=== PATIENT | female | born 1995 | race Caucasian/White ===

== ENCOUNTER 2020-03-26 06:19 | Emergency (ER) | payer BC, SELFPAY ==
[2020-03-26 06:23] VITALS: BP 147/86; PULSE 94; RESP 14; TEMP 36.5; O2SAT 99
[2020-03-26 06:34] VITALS: BP 147/86; PULSE 94; RESP 16; TEMP 36.6; O2SAT 100; BMI 34.9
--- NOTE | 2020-03-26 07:16 | ED.HA ---
HPI - Headache General Chief Complaint: Headache Stated Complaint: migraine Time Seen by Provider: 03/26/20 07:16 Source: patient Mode of arrival: ambulatory Limitations: no limitations History of Present Illness MD elicited complaint: headache Onset (ago): day(s) (2) Onset description: suddenly Location: right and temporal Quality & Timing: constant Exacerbating factors: light and noise Associated symptoms: other (Tingling on the right side of the face) Treatments prior to arrival: ibuprofen Related Data Allergies Allergy/AdvReac Type Severity Reaction Status Date / Time nut - unspecified [NUTS] Allergy Unknown SWELLING Verified 03/26/20 08:08 THROAT, Face, HIVES oxcarbazepine AdvReac Intermediate RASH Verified 03/26/20 08:08 [From TRILEPTAL] NUTS Allergy Unknown anaphylaxis Uncoded 02/21/17 00:00 peanuts Allergy Unknown anaphylaxis Uncoded 02/09/20 00:00 Review of Systems Constitutional: Constitutional: Reports body ache(s), Reports chills, Reports fever(s) and Reports frequent falls Eyes: Eyes: Reports no additional eye complaints ENT: Reports system reviewed and no additional complaints, except as documented Cardiovascular: Cardiovascular: Reports no additional cardiovascular complaints Respiratory: Respiratory: Reports no additional respiratory complaints Gastrointestinal: Gastrointestinal: Denies abdominal pain, Denies diarrhea, Reports nausea and Denies vomiting Neurologic: Reports frequent falls Psychiatric: Psychiatric: Reports no additional psychiatric complaints, Denies abnormal sleep pattern and Denies anxiety PMFSH Past Medical History Medical History Chronic headaches Migraines Social History Social History Alcohol intake: never Smoking Status: Never smoker Use of substances other than those prescribed or required for medical reasons: No Advance Directives: No Advance Directives Information Provided: No Physical Exam Vital Signs and I&O and Narrative: Vital Signs and I&O: Vital Signs Temp 97.9 F 03/26/20 07:33 Pulse 77 03/26/20 07:33 Resp 18 03/26/20 07:33 BP 131/84 03/26/20 07:33 Pulse Ox 98 03/26/20 07:33 Intake & Output 03/25/20 03/26/20 03/26/20 18:59 06:59 18:59 Weight 89.358 kg Body Mass Index 34.9 Const: General: cooperative, healthy appearing, comfortable and other (photophobia) Nutritional Appearance: average body habitus Orientation/consciousness: oriented to person, oriented to place and oriented to time Limitations: no limitations HENMT: Other: No temporal artery tenderness or facial asymmetry Head: Yes normal to inspection Ears: hearing grossly normal bilaterally Face and sinus: Yes sinuses nontender Eyes: General: appearance normal, both eyes and all related structures Neck: Neck: Yes normal visual inspection, Yes full ROM, Yes no lymphadenopathy and Yes no meningeal signs Resp: Effort & Inspection: normal respiratory effort Auscultation: clear to auscultation bilaterally Cardio: Rate: regular rate Rhythm: regular rhythm Heart sounds: S1 normal heart sound present and S2 normal heart sound present GI: Inspection: Yes normal to inspection Palpation (GI): Soft to palpation and nontender Neuro: General: oriented to person, oriented to place, oriented to time and no meningeal signs Course Course Course Narrative: Patient headache is getting better after Imitrex still present will give her Fioricet plan to discharge her soon
[2020-03-26 07:33] VITALS: BP 131/84; PULSE 77; RESP 18; TEMP 36.6; O2SAT 98
[2020-03-26 08:00] VITALS: BP 134/89; PULSE 18; RESP 20; TEMP 36.6; O2SAT 98
--- NOTE | 2020-03-26 08:06 | PC.NURSE ---
MEDS GIVEN FOR MURPHY, PT RESTING IN ROOM. WILL REASSESS
== END 2020-03-26 09:54 | disposition home or self-care (01) ==
PROVIDERS: Emergency Provider Internal Medicine; PCP Internal Medicine
DX: G43.909 Migraine, unspecified, not intractable, without status migrainosus (principal)
CPT/HCPCS: 96372; 99284; J3030

== ENCOUNTER → 2020-04-12 12:18 | Outpatient (BNVA) | payer BC, SELFPAY | PROVIDERS: PCP Internal Medicine; Visit Provider Obstetrics & Gynecology | DX: Z76.89 Persons encountering health services in other specified circumstances (principal) ==

== ENCOUNTER 2020-05-20 16:14 | Outpatient (REF) | payer BC, SELFPAY ==
--- NOTE | 2020-05-20 16:17 | CT_ITS ---
EXAMINATION: CT ABDOMEN AND PELVIS WITHOUT CONTRAST CLINICAL INFORMATION: Dysuria. COMPARISON: Ultrasound pelvis 02/11/[address] abdomen and pelvis without contrast 09/26/2018. TECHNIQUE: Multidetector volumetric imaging was performed from the superior aspect of the liver through the pubic symphysis. Sagittal and coronal reformatted images were obtained on the technologist's workstation. This CT examination was performed using dose optimization techniques as appropriate, variously including the following: Automated exposure control. Adjustment of mA and/or kV according to patient size (this includes techniques or standardized protocols for targeted exams where dose is matched to indication/reason for exam; i.e. extremities or head). Use of iterative reconstruction technique. DLP: 536 mGy-cm FINDINGS: LUNG BASES: The visualized lung bases are unremarkable. LIVER, GALLBLADDER, AND BILIARY TREE: The liver is normal in size, shape, and attenuation. No focal hepatic lesion or biliary ductal dilatation is present. The gallbladder is unremarkable with no evidence of radiopaque gallstones, gallbladder wall thickening, or obvious pericholecystic inflammatory changes. PANCREAS: Unremarkable. SPLEEN: Unremarkable. ADRENAL GLANDS: Unremarkable. KIDNEYS AND URETERS: The kidneys are normal in size, shape, and attenuation. No hydronephrosis, hydroureter, or calculi seen. No perinephric stranding. BLADDER: Unremarkable. GASTROINTESTINAL TRACT: There is scattered stool and gas seen throughout the colon. The small bowel loops are normal caliber. Appendix is not visualized with certainty. The stomach is partially distended with recently ingested food. No inflammatory process seen. ABDOMINAL WALL: No significant hernia is appreciated. LYMPH NODES: Normal. VASCULAR: Unremarkable. PELVIC VISCERA: The uterus is retroverted with an IUD well located in endometrial canal. No adnexal mass or free fluid seen. Small phlebolith seen in the right pelvis. OSSEOUS STRUCTURES: No lytic or sclerotic process seen. CT/CT abdomen pelvis wo con IMPRESSION: No radiopaque urolith or hydroureteronephrosis. Retroverted uterus with an IUD in good position.
== END 2020-05-20 16:15 | disposition home or self-care (01) ==
LOC: HO.CT 16:14
PROVIDERS: PCP Internal Medicine; Visit Provider Nurse Practitioner Family
DX: R30.0 Dysuria (principal)
CPT/HCPCS: 74176

== ENCOUNTER 2020-05-28 11:12 | Outpatient (REF) | payer BC, SELFPAY | END 2020-05-28 11:13 | disposition home or self-care (01) | LOC: HO.LAB 11:12 | PROVIDERS: Visit Provider Hospitalist | DX: Z20.828 Contact with and (suspected) exposure to other viral communicable diseases (principal) | CPT/HCPCS: U0003 ==

== ENCOUNTER 2021-03-01 17:19 | Outpatient (REF) | payer BC, SELFPAY | END 2021-03-01 17:20 | disposition home or self-care (01) | LOC: HO.LNP 17:19 | PROVIDERS: Visit Provider Internal Medicine | DX: Z20.822 Contact with and (suspected) exposure to COVID-19 (principal); J06.9 Acute upper respiratory infection, unspecified | CPT/HCPCS: U0005 ==

== ENCOUNTER 2021-03-03 14:13 | Outpatient (REF) | payer BC, SELFPAY | END 2021-03-03 14:14 | disposition home or self-care (01) | LOC: HO.LNP 14:13 | PROVIDERS: Visit Provider Internal Medicine | DX: Z20.822 Contact with and (suspected) exposure to COVID-19 (principal); J06.9 Acute upper respiratory infection, unspecified | CPT/HCPCS: U0003; U0005 ==

== ENCOUNTER 2021-06-23 20:58 | Emergency (ER) | payer BC, SELFPAY ==
[2021-06-23 22:00] VITALS: BP 149/97; PULSE 89; RESP 16; TEMP 37.1; O2SAT 100; BMI 31.8
[2021-06-24] MEDS: diphenhydrAMINE HCL 25 MG TABLET 50 MG PO (01:33)
--- NOTE | 2021-06-24 08:46 | ED.ALLEREA ---
HPI - Allergic Reaction General Chief complaint: Allergic Reaction Stated complaint: booster reaction - rash + tingle on tongue Time Seen by Provider: 06/24/21 08:04 Source: patient Mode of arrival: ambulatory Limitations: no limitations History of Present Illness HPI narrative: Patient is a 26 year old female with a medical history significant for seizure disorder, complex ovarian cyst. She presents to the emergency department with concerns of having allergic reaction to her Moderna COVID-19 booster vaccination that she received 3 days ago. Reports having received her first 2 Moderna vaccinations in June 2020 without any reaction. Yesterday she developed pain to her left shoulder, axilla, and upper back with spots of redness, and swelling. In addition, she reports tingling to her bilateral cheeks, tongue, and her upper palate. Denies associated shortness of breath, difficulty breathing, wheezing, chest pain, nausea, or vomiting. She took Benadryl yesterday evening and early this morning, with minimal relief of itching. Denies any past history of vaccine reactions. MD complaint: allergic reaction Onset (ago): day(s) (1) Symptoms: rash and itching Treatment prior to arrival: benadryl Previous Allergic Reaction History: anaphylaxis ([place]) and other (Trileptal) Related Data Previous Rx's Medication Instructions Recorded [id number] 1 cap PO Q6H PRN #20 cap 03/26/20 50 mg-300 mg-40 mg capsule (Fioricet) sumatriptan succinate 50 mg tablet 50 mg PO Q2H PRN #10 tab 03/26/20 (Imitrex) fluconazole 150 mg tablet 150 mg PO DAILY 3 Days #3 tab 05/28/20 prednisone 20 mg tablet 20 mg PO .COMPLEX #18 tab 05/28/20 diphenhydramine HCl 25 mg capsule 50 mg PO Q6H PRN #14 cap 06/24/21 (Benadryl) famotidine 20 mg tablet (Pepcid) 20 mg PO BID #14 tab 06/24/21 Allergies Allergy/AdvReac Type Severity Reaction Status Date / Time nut - unspecified [NUTS] Allergy Unknown SWELLING Verified 03/01/21 12:57 THROAT, Face, HIVES oxcarbazepine AdvReac Intermediate RASH Verified 03/01/21 12:57 [From TRILEPTAL] Review of Systems Review of Systems: Constitutional : No Fever, No Chills ENT/Mouth : No oral swelling. No Hoarseness, No Swallowing Difficulty Eyes: No Eye Pain, No Swelling, No Redness Cardiovascular : No Chest Pain, No SOB Respiratory : No Cough, No Sputum, No Wheezing, No Smoke Exposure, No Dyspnea Gastrointestinal : No Nausea, No Vomiting, No Diarrhea, No abdominal Pain Genitourinary : No Dysuria, No Urinary Frequency, No Hematuria Musculoskeletal : No joint pain, No Myalgias, No Joint Swelling Skin : No Skin Lesions, positive rash left arm Neuro : No Weakness, No Numbness, No Headache Psych : No Anxiety/Panic, No Depression Heme/Lymph: No Bruising, No Lymphadenopathy Endocrine : No Polyuria, No Polydipsia Yes all other systems are reviewed and are negative [facility] Past Medical History Attestation statement: The following information was validated with the patient. Source: old records reviewed Medical History Chronic headaches Migraines Social History Social History Alcohol intake: never Advance Directives: No Advance Directives Information Provided: Yes Sexual orientation: Straight/Heterosexual Gender identity: Female Physical Exam Vital Signs: Vital Signs: Last Vital Signs Temp 98.8 F 06/23/21 22:00 Pulse 89 06/23/21 22:00 Resp 16 06/23/21 22:00 BP 149/97 H 06/23/21 22:00 Pulse Ox 100 06/23/21 22:00 BMI result Body Mass Index 31.8 Vital signs have been reviewed as normal and appeared to be correct. Blood pressure normal upon repeat 125/81. Heart rate normal.? Respiration rate normal. Temperature normal.? Oxygen saturation normal. Appearance: Alert.? Oriented X3.? No acute distress.?? Eyes: Pupils equal, round and reactive to light.?? ENT: Pharynx normal.??No swelling, no erythema. Neck: Normal inspection.? Neck supple.?? CVS: Normal heart rate and rhythm.? Pulses normal.?? Respiratory: No respiratory distress.? Breath sounds normal.?? Abdomen: Soft and nontender.?? Skin: + localized swelling to left upper arm with patches of erythema. Skin warm and dry.? Normal skin color.? Normal skin turgor.?? Extremities: No lower extremity edema.? Neuro: Oriented X 3.? No motor deficit.? No sensory deficit. Course Course Course Narrative: 26-year-old female presents to the emergency department with concerns about allergic reaction to Moderna COVID-19 booster vaccination received 3 days ago. Currently on exam no concerns for angioedema, she is able to maintain her airway and is speaking full appropriate sentences. Advised discharge home with use of antihistamines for treatment of reaction, Tylenol or ibuprofen as needed for pain, in addition to topical cold therapy. Reviewed indications of return to the emergency department including, but not limited to, shortness of breath, wheezing, difficulty breathing, chest pain, nausea with persistent vomiting. She should follow-up with her primary care provider in 1-2 days. She was provided with a return to work note. MDM - Allergic Reaction Medical Records Attestation: I reviewed the patient's medical records. Discharge Plan Discharge Clinical Impression: Allergic reaction Patient Disposition: Home, Self-Care Instructions: General Allergic Reaction (ED) Additional Instructions: You were evaluated in the emergency department for concerns about an allergic reaction to your Moderna booster vaccination. You can apply cold packs to a left common his armpit. You can continue using Benadryl to alleviate your symptoms, in addition you can use Pepcid as prescribed. You may also use Tylenol or ibuprofen as needed for pain. You should follow-up with your primary care provider in 1 to 2 days. Please return to the emergency department with new or worsening symptoms. Prescriptions: New diphenhydramine HCl [Benadryl] 25 mg capsule 50 mg PO Q6H PRN (Reason: itching) Qty: 14 RF: 0 famotidine [Pepcid] 20 mg tablet 20 mg PO BID Qty: 14 RF: 0 No Action sumatriptan succinate [Imitrex] 50 mg tablet 50 mg PO Q2H PRN (Reason: migraine headache) Qty: 10 RF: 0 [id number]-[id number]-ovke [Fioricet] 50-300-40 mg capsule 1 cap PO Q6H PRN (Reason: pain) Qty: 20 RF: 0 prednisone 20 mg tablet 20 mg PO .COMPLEX Qty: 18 RF: 0 fluconazole 150 mg tablet 150 mg PO DAILY 3 Days Qty: 3 RF: 0 Stand Alone Forms: Work/School Release
[2021-06-24 09:04] VITALS: BP 125/81; PULSE 78; RESP 16; TEMP 36.7; O2SAT 100
== END 2021-06-24 09:47 | disposition home or self-care (01) ==
PROVIDERS: Emergency Provider Emergency Medicine; PCP Internal Medicine
DX: L50.0 Allergic urticaria (principal); Z79.899 Other long term (current) drug therapy
CPT/HCPCS: 99283; Q0163

== ENCOUNTER 2022-10-10 09:40 | Outpatient (REF) | payer BC, SELFPAY | END 2022-10-10 09:41 | disposition home or self-care (01) | LOC: HO.LNP 09:40 | PROVIDERS: PCP Internal Medicine; Visit Provider Obstetrics & Gynecology | DX: Z01.419 Encounter for gynecological examination (general) (routine) without abnormal findings (principal) | CPT/HCPCS: 88142 ==

== ENCOUNTER 2023-07-06 11:14 | Outpatient (AMB) | payer BC, SELFPAY ==
--- NOTE | 2023-07-06 13:08 | AM.OFFWIN_ITS ---
Intake Vital Signs 07/06/23 13:08 07/06/23 13:09 Height 5 ft 4 in 5 ft 4 in Weight 172 lb BMI 29.5 BP 118/80 Blood Pressure Location Lt brachial Position Sitting Pulse 73 Pulse Source Pulse Oximeter Temp 97.9 F Temp Source Temporal Artery Scan Pulse Oximetry (%) 98 Oxygen Delivery Method Room Air Intake Visit Reasons: EP Fever, sore throat, cough [phone] Intake Note: pt is here today for fever sore throat cough started Patient Tobacco Use Status: Never used Tobacco Allergies nut - unspecified [NUTS] Allergy (Unknown, Verified 07/06/23 13:10) SWELLING THROAT, Face, HIVES oxcarbazepine [From TRILEPTAL] Adverse Reaction (Intermediate, Verified 07/06/23 13:10) RASH Medication List - Last Reconciled 07/06/23 by Jessica Bella NP albuterol sulfate 90 mcg/actuation 1 inh inhalation QID PRN diphenhydramine HCl (Benadryl) 50 mg (2 x 25 mg) PO Q6H PRN famotidine (Pepcid) 20 mg PO BID gabapentin 300 mg PO TID levonorgestrel (Mirena) intrauterine Do you need a note to return to daycare/school/sports/work: Yes HPI HPI Comments History of Present Illness Details 28 y/o female presents to walk in clinic with c/o URI symptoms. Reports fever of 101 F this morning. She has not taken any OTC medications. [facility] Medical History Chronic headaches Migraines Family History Maternal Grandmother Breast cancer Social History Alcohol intake: never Patient Tobacco Use Status: Never used Tobacco Sexual orientation: Straight/Heterosexual Gender identity: Female Female Reproductive History Menstrual Age of Menarche: 12 Review of Systems Const All systems reviewed & are unremarkable except as noted in HPI and below Physical Exam Vital Signs: Last Vital Signs Temp 97.9 F 07/06/23 13:09 Pulse 73 07/06/23 13:09 BP 118/80 07/06/23 13:09 Pulse Ox 98 07/06/23 13:09 Oxygen Delivery Method Room Air 07/06/23 13:09 BMI result Body Mass Index 29.5 Const General: comfortable and no acute distress HEENT Head: Yes normocephalic Ears: external ears normal and TM's normal bilaterally General nose exam: Normal nasal mucous membranes and turbinates present and N dinora discharge present Face and sinus: Yes sinus tenderness Mouth: Normal oral and palatal mucosa present Throat: Yes posterior oropharynx normal Resp Effort & Inspection: normal respiratory effort, no audible wheezes, Actively coughing and no grunting Auscultation: clear to auscultation bilaterally Cardio Rate: regular rate Rhythm: regular rhythm Results AMB Rapid Strep AMB Rapid Strep Negative Last Edit by Vikram Bowens CMA on 07/06/23 13 :37 Results Reviewed Results Reviewed: Laboratory Last Values Strep Scn Rapid Clinic Negative 07/06/23 13:36 Assessment & Plan Assessment & Plan (1) Acute pharyngitis: Code(s): J02.9 - Acute pharyngitis, unspecified Qualifiers: Pharyngitis/tonsillitis etiology: unspecified etiology Qualified Code(s): J02.9 - Acute pharyngitis, unspecified Plan: - Rest, warm fluids - Home remedies - Acetaminophen for pain relief. (2) Acute rhinosinusitis: Code(s): J01.90 - Acute sinusitis, unspecified Plan: - Rest, warm fluids - Home remedies - Acetaminophen for pain relief. Orders: Orders SARS-CoV2/FLU/RSV Today J01.90 - Acute sinusitis, unspecified, J02.9 - Acute pharyngitis, unspecified AMB Rapid Strep Screen Today Z13.9 - Encounter for screening, unspecified Medications: New amoxicillin 500 mg PO BID 10 days 20 tabs 0RF acetaminophen 500 mg PO Q6H PRN 30 caps 0RF fever Coding Level of Care Code Est Pt Level 3 (72759) Diagnoses Acute pharyngitis, unspecified etiology J02.9 Pharyngitis/tonsillitis etiology: unspecified etiology Acute rhinosinusitis J01.90 Time Spent (min) 15
[2023-07-06 13:09] VITALS: BP 118/80; PULSE 73; TEMP 36.6; O2SAT 98; BMI 29.5
== END 2023-07-06 13:40 | disposition home or self-care (01) ==
PROVIDERS: PCP Internal Medicine; Visit Provider Nurse Practitioner Family
DX: J02.9 Acute pharyngitis, unspecified (principal); J01.90 Acute sinusitis, unspecified
CPT/HCPCS: 87880; 99213

== ENCOUNTER 2023-07-06 17:17 | Outpatient (REF) | payer BC, SELFPAY ==
[2023-07-06 18:05] LABS: Influenza A PCR NEGATIVE (Negative); Influenza B PCR NEGATIVE (Negative); Resp Syncy Virus RNA Qual PCR NEGATIVE (Negative); SARS COV2 PCR INHOUSE NEGATIVE (Negative)
== END 2023-07-06 17:18 | disposition home or self-care (01) ==
LOC: HO.LNP 17:17
PROVIDERS: Visit Provider Nurse Practitioner Family
DX: Z11.52 Encounter for screening for COVID-19 (principal); Z20.822 Contact with and (suspected) exposure to COVID-19; J02.9 Acute pharyngitis, unspecified; J01.90 Acute sinusitis, unspecified
CPT/HCPCS: 0241U

== ENCOUNTER 2024-03-05 14:22 | Outpatient (REF) | payer OTHER, SELFPAY ==
[2024-03-05 17:06] LABS: Bacterial Vaginosis PCR POSITIVE (Negative); Candida Group PCR NOT DETECTED (Not Detect); Candida glab krusei PCR NOT DETECTED (Not Detect); Trichomonas vaginalis PCR NOT DETECTED (Not Detect)
[2024-03-05 17:44] LABS: CT PCR NOT DETECTED (Not Detect.); NG PCR NOT DETECTED (Not Detect.)
== END 2024-03-05 14:23 | disposition home or self-care (01) ==
LOC: HO.LNP 14:22
PROVIDERS: PCP Internal Medicine; Visit Provider Obstetrics & Gynecology
DX: N94.10 Unspecified dyspareunia (principal); Z30.433 Encounter for removal and reinsertion of intrauterine contraceptive device; Z32.02 Encounter for pregnancy test, result negative
CPT/HCPCS: 0352U; 58300; 58301; 81025; 87491; 87591; J7298

== ENCOUNTER 2024-03-05 14:22 | Outpatient (AMB) | payer OTHER, SELFPAY ==
[2024-03-05 14:37] VITALS: BMI 29.5
--- NOTE | 2024-03-05 14:37 | MHC.OFFVIS ---
Vital Signs 03/05/24 14:37 Height 5 ft 4 in Weight 171 lb 15.369 oz BMI 29.5 Intake Visit Reasons: painful intercourse/IUD check Music Library Assistant Required: No Information Interpreted: non-clinical & clinical Real Estate Utilization Officer: Real Estate Utilization Officer Present (Jocelyn Gan BEN) Accompanied by: Self / Same As Patient Allergies nut - unspecified [NUTS] Allergy (Unknown, Verified 03/05/24 14:38) SWELLING THROAT, Face, HIVES oxcarbazepine [From TRILEPTAL] Adverse Reaction (Intermediate, Verified 03/05/24 14:38) RASH Is last menstrual period known: No (mirena) HPI Comments Details: Presenting complaining of painful intercourse over the last 2 months . The patient had Mirena IUD inserted 8 and half years ago and would like it replaced. No urine or GI symptoms, no vaginal bleeding or discharge PFSH Medical History Chronic headaches Migraines Family History Maternal Grandmother Breast cancer Social History Alcohol intake: never Patient Tobacco Use Status: Never used Tobacco Sexual orientation: Straight/Heterosexual Gender identity: Female Female Reproductive History Menstrual Age of Menarche: 12 Review of Systems Const All systems reviewed & are unremarkable except as noted in HPI and below Physical Exam Vital Signs: BMI result Body Mass Index 29.5 General: Yes no CVA tenderness External Female Exam: normal external appearance and normal appearance of the urethra Speculum Exam - Vagina: normal appearance of the vagina, normal palpation, no lesions and no masses Speculum Exam - Cervix: normal appearance of the cervix, normal palpation, no lesions, no masses, nontender and Other cervical findings present (IUD thread in place) Bimanual exam- vagina & uterus: normal bimanual exam, normal palpation, uterine size normal, normal palpation, uterine shape normal, No Cervical tenderness present and non-tender Bimanual Exam- Adnexa, other: normal adnexae Back/Spine/Pelvis Back: no CVA tenderness Office Procedures IUD Insert/Removal Details Details: The patient is presenting for IUD removal and IUD reinsertion. Her last menstrual period was within the last 5 days, Urine test was done in the office and was negative; All the contraindications were excluded. The following possible complications were discussed with the patient: Intrauterine , Ectopic , Sepsis, Pelvic Infection, Irregular Bleeding and Amenorrhea, Perforation, Expulsion, Ovarian Cysts, Breast Cancer. The following adverse effects were discussed with the patient: alteration of menstrual bleeding pattern, including: unscheduled uterine bleeding decreased uterine bleeding increased scheduled uterine bleeding female genital tract bleeding ,amenorrhea , genital discharge , vulvovaginitis , breast pain , benign ovarian cyst and associated complications , dysmenorrhea , Gastrointestinal disorders abdominal/pelvic pain, headache/migraine , back pain , acne , depression Alternative options were discussed with the patient including but not limited: control pills, patch, NuvaRing, Depo-medroxyprogesterone acetate, Nexplanon, copper IUD, sterilization, vasectomy, others The procedure was explained in detail to patient , at the end patient signed the informed consent obtained. Alternative options were discussed with the patient The patient signed the consent and agreed with the plan; all questions answered. Urine test was done in the office and was negative Last unprotected intercourse was 6 weeks ago Preop dx: Requesting IUD removal and Reinsertion Op: IUD removal and Mirena insertion Post op dx: same EBL= 10 cc Procedure: The patient was put in the dorsal lithotomy position a speculum was inserted in the vagina the IUD thread identified. Using a Tatiana clamp the thread was grasped and the IUD pulled out with no complications. A no touch technique was used throughout the procedure. A speculum was placed into vagina and cervix was cleaned with betadine). A tenaculum was placed. A plastic sound was advanced through the external and internal os until it reached the fundus of the uterus, the depth was 8 cm. The sound was then withdrawn. The IUD was loaded in a sterile manner and advanced into position. The string was visualized and cut to 3 cm. Tenaculum site hemostatic. All instruments removed from vagina. Patient tolerated the procedure well. NO complications were noted. Patient was instructed to call for fever over 100.4, significant pain unrelieved by Motrin, IUD expulsion, heavy bleeding, or abnormal discharge. In addition, the following clinical considerations were discussed with the patient to call for removal: A stroke or heart attack ,Very severe or migraine headaches ,Unexplained fever ,Yellowing of the skin or whites of the eyes, as these may be signs of serious liver problems , or suspected , Pelvic pain or pain during sex ,HIV positive seroconversion in herself or her partner , Possible exposure to sexually transmitted infections Unusual vaginal discharge or genital sores , severe vaginal bleeding or bleeding that lasts a long time, or if she misses a menstrual period, Inability to feel Mirena's threads Counseled the patient that the IUD does not protect against STI's, recommended use of condoms for the first 7 days post insertion and explained to the patient that condoms are recommended for patients at risk for sexually transmitted infections. Follow up appointment made for 4 weeks following insertion. Date of removal in no more than five years for DUB treatment and 8 years for contraception from today?s date was d/w patient. This note was generated with a voice recognition program. Some errors may have been overlooked during the review of this note. Sometimes these errors may affect the content or meaning of a given sentence. 37714-PCM Insertion 20854-WBX Removal Procedure code (CPT) selection complete Office Meds Mirena 21 mcg/24 hr (up to 8 years) 52 mg intrauterine device Performing Provider: Donato Dunn MD Performing Location[place] [facility] [place] [facility] Administered by: Donato Dunn MD on 03/05/24 14:55 Dose Route Admin Location Dispensed Lot Number Expiration Date [facility] [employer] device intrauterine [facility] [place] [id number] 04/17/26 [id number] [employer] Results AMB Test Urine AMB Test Urine Negative Last Edit by Jocelyn Gan CMA on 03/05/24 14:39 Results Reviewed Results Reviewed: Laboratory Last Values Tst Clinic Negative 03/05/24 14:39 Assessment & Plan Assessment & Plan (1) Dyspareunia, female: Code(s): N94.10 - Unspecified dyspareunia Category: Medical Plan: Urine dip and test done in the office. GC/CT with BV panel collected. Pelvic ultrasound ordered. Instructions given the patient to schedule a 2 week follow-up appointment (2) Encounter for IUD removal and reinsertion: Code(s): Z30.433 - Encounter for removal and reinsertion of intrauterine contraceptive device Category: Medical Plan: Discussed with the patient that Mirena IUD is . Discussed with the patient the different options of control including control pills/Nuvaring, DMPA, different types of IUD ?s ( cu vs progesterone) , sterilization. All the pros, cons, risks and benefits of each were discussed with the patient. The patient decided to go ahead with Mirena IUD, so a more detailed discussion was carried on including mechanism of action, risks (infection, uterine perforation, failure with ectopic , septic AB, ovarian cyst and pelvic pain, increased breast cancer risk and others) benefits (efficient contraceptive method, others), GC/CG were taken and the patient asked to have Mirena IUD removal and insertion today. Patient is amenorrheic since IUD insertion 8 and half years ago and last unprotected intercourse was 6 weeks ago. Urine test done today was negative. Mirena IUD removal and insertion done, see procedure note Orders: Orders CT NG by PCR 03/05/24 Z30.433 - Encounter for removal and reinsertion of intrauterine contraceptive device Bacterial Vaginosis Panel 03/05/24 Z30.433 - Encounter for removal and reinsertion of intrauterine contraceptive device AMB HCG Urine Test 03/05/24 Z32.02 - Encounter for test, result negative US pelvic and transvaginal 03/05/24 N94.10 - Unspecified dyspareunia AMB IUD Insertion/Removal - Practice Supplied 03/05/24 Z30.433 - Encounter for removal and reinsertion of intrauterine contraceptive device Coding Level of Care Code Est Pt Level 3 (20954) Diagnoses Dyspareunia, female N94.10 Encounter for IUD removal and reinsertion Z30.433 CPT Codes Details - CPT: 75965-WEU Insertion ([id number]) Details - CPT: 02615-WQX Removal ([id number])
== END 2024-03-05 15:18 | disposition home or self-care (01) ==
PROVIDERS: PCP Internal Medicine; Visit Provider Obstetrics & Gynecology
DX: Z32.02 Encounter for pregnancy test, result negative (principal); Z30.433 Encounter for removal and reinsertion of intrauterine contraceptive device
CPT/HCPCS: 58300; 58301; 99213

== ENCOUNTER 2024-03-05 15:15 | Outpatient (REF) | payer OTHER, SELFPAY ==
--- NOTE | ~2024-03-05 | US_ITS ---
EXAMINATION: US PELVIS CLINICAL INFORMATION: Dyspareunia. COMPARISON: None available. TECHNIQUE: Ultrasound of the pelvis is performed using both transabdominal and transvaginal transducers along with Doppler. Transvaginal imaging is performed due to inadequate visualization transabdominally. FINDINGS: UTERUS: The uterus is anteverted and measures 7.1 x 3.1 x 3.9 cm. The double wall endometrial thickness is 2 mm. An IUD is present in good position. The uterus is smooth in contour and has normal myometrial echogenicity. No visible fibroid. ADNEXA: Both ovaries are visualized. There is normal color flow to the adnexa. There is no ovarian torsion. There is no pelvic ascites or fluid collection. Right ovary measures 1.7 x 2.8 x 1.6 cm for a volume of 4.0 mL. Left ovary measures 2.6 x 2.2 x 3.2 cm for a volume of 9.6 mL. US/US pelvic and transvaginal IMPRESSION: Normal exam. An IUD is present in good position. Electronically signed by: Ralph Haines MD 03/12/2024 05:04 PM EDT
== END 2024-03-05 15:16 | disposition home or self-care (01) ==
LOC: HO.US 15:15
PROVIDERS: Visit Provider Obstetrics & Gynecology
DX: N94.10 Unspecified dyspareunia (principal)
CPT/HCPCS: 76830; 76856

== ENCOUNTER 2024-05-29 08:18 | Outpatient (AMB) | payer OTHER, SELFPAY ==
--- NOTE | 2024-05-29 08:20 | AM.OFFWIN_ITS ---
Intake Vital Signs 05/29/24 08:28 Weight 171 lb BP 110/74 Blood Pressure Location Lt brachial Position Sitting Pulse 66 Pulse Source Pulse Oximeter Temp 97.7 F Temp Source Temporal Artery Scan Pulse Oximetry (%) 99 Oxygen Delivery Method Room Air Intake Visit Reasons: EP ?UTI Intake Note: Patient here for lower back pain,chills, pain on urination which started last night. Patient Tobacco Use Status: Never used Tobacco Allergies nut - unspecified [NUTS] Allergy (Unknown, Verified 05/29/24 08:27) SWELLING THROAT, Face, HIVES oxcarbazepine [From TRILEPTAL] Adverse Reaction (Intermediate, Verified 05/29/24 08:27) RASH Do you need a note to return to daycare/school/sports/work: Yes HPI EP ?UTI HPI Details This note is constructed using voice recognition software. While every effort has been made to ensure accuracy, developer relations manager errors may have been included. The patient is a 29 year old female who presents to the clinic today with urinary frequency, urgency, and burning since last night. She does report some low back pain, but no flank pain. She denies fever and chills. She has tried to increase her hydration to help with symptoms. [facility] Medical History Chronic headaches Migraines Family History Maternal Grandmother Breast cancer Social History Alcohol intake: never Patient Tobacco Use Status: Never used Tobacco Sexual orientation: Straight/Heterosexual Gender identity: Female Female Reproductive History Menstrual Age of Menarche: 12 Review of Systems Const All systems reviewed & are unremarkable except as noted in HPI and below Physical Exam Vital Signs: Last Vital Signs Temp 97.7 F 05/29/24 08:28 Pulse 66 05/29/24 08:28 BP 110/74 05/29/24 08:28 Pulse Ox 99 05/29/24 08:28 Oxygen Delivery Method Room Air 05/29/24 08:28 Const General: cooperative, healthy appearing, comfortable, no acute distress and alert Orientation/consciousness: patient oriented x3 Limitations: no limitations Resp Effort & Inspection: normal respiratory effort and able to speak in complete sentences Other: Deferred General: Yes no CVA tenderness Back/Spine/Pelvis Back: no CVA tenderness Skin General skin exam: no rashes or lesions noted, elasticity normal and turgor normal Neuro General: patient oriented x3 Psych Appearance: grossly normal Mental Status: mental status grossly normal Speech and movement: Normal speech and movement present Affect: normal affect Results Reviewed Results Reviewed: In office urinalysis positive for likely UTI. Assessment & Plan Assessment & Plan (1) UTI (urinary tract infection): Code(s): N39.0 - Urinary tract infection, site not specified Qualifiers: Urinary tract infection type: acute cystitis Hematuria presence: without hematuria Qualified Code(s): N30.00 - Acute cystitis without hematuria Plan: Supportive measures encouraged and reviewed. Antibiotic sent to requested pharmacy, advised patient to take antibiotics until completed and not to stop if feeling better, unless the patient has side effects. Advised patient to follow up with primary care provider with worsening or failure to resolve. Plan See above for full details and plan. Medications: New nitrofurantoin monohyd/m-cryst 100 mg must administer with a meal/food 100 mg PO Q12H 5 days 10 caps 0RF Coding Level of Care Code Est Pt Level 3 (85517) Diagnoses Acute cystitis without hematuria N30.00 Urinary tract infection type: acute cystitis Hematuria presence: without hematuria
[2024-05-29 08:28] VITALS: BP 110/74; PULSE 66; TEMP 36.5; O2SAT 99
== END 2024-05-29 09:09 | disposition home or self-care (01) ==
PROVIDERS: PCP Internal Medicine; Visit Provider Registered Nurse
DX: N30.00 Acute cystitis without hematuria (principal); Z13.9 Encounter for screening, unspecified

== ENCOUNTER → 2024-05-29 08:18 | Outpatient (BNVA) | payer OTHER, SELFPAY | PROVIDERS: PCP Internal Medicine; Visit Provider Registered Nurse | DX: N30.00 Acute cystitis without hematuria (principal) | CPT/HCPCS: 81003 ==

== ENCOUNTER 2024-06-02 08:04 | Emergency (ER) | payer OTHER, SELFPAY ==
--- NOTE | ~2024-06-02 | CT_ITS ---
EXAMINATION: CT HEAD WITHOUT CONTRAST (STROKE PROTOCOL) CLINICAL INFORMATION: Headache. Right-sided deficits. COMPARISON: None available. TECHNIQUE: Contiguous axial imaging was performed from the skull base to vertex without intravenous administration of contrast. This CT examination was performed using dose optimization techniques as appropriate, variously including the following: *Automated exposure control *Adjustment of mA and/or kV according to patient size (this includes techniques or standardized protocols for targeted exams where dose is matched to indication/reason for exam; i.e. extremities or head) *Use of iterative reconstruction technique DLP: 607 mGy-cm FINDINGS: No intracranial hemorrhage, large infarction, or mass lesion is seen. No extra-axial collection is appreciated. The ventricles are normal in size and configuration without evidence of hydrocephalus. The visualized paranasal sinuses and mastoid air cells are clear. CT/CT head for STROKE IMPRESSION: No acute intracranial finding. Dr. Fitch was directly informed of the findings by telephone at approximately 9:15 AM on June 02, 2024. Electronically signed by: Vern Morse MD 06/02/2024 09:16 AM [facility]
--- NOTE | ~2024-06-02 | MR_ITS ---
EXAMINATION: MR BRAIN WITHOUT CONTRAST CLINICAL INFORMATION: Right sided weakness. COMPARISON: CTA head and neck from 06/02/2024. TECHNIQUE: MRI of the brain was obtained using routine sequences without contrast. FINDINGS: No focal restricted diffusion is demonstrated to suggest acute or subacute cerebral ischemia. No evidence of acute or chronic hemorrhagic products on heme-sensitive imaging. Few nonspecific scattered foci of T2 FLAIR hyperintensity within the frontoparietal lobes lobes. No additional parenchymal signal abnormalities. The ventricles are normal in morphology and size. No abnormal mass effect. No midline shift. Normal appearance of the pituitary gland. Normal positioning of the cerebellar tonsils. Normal arterial and venous vascular flow voids are present. Normal, homogeneous marrow signal. Mild mucosal thickening of the paranasal sinuses. No signal abnormalities within the mastoids. MR/MR head/brain wo con IMPRESSION: 1. No acute intracranial abnormalities. 2. Mild nonspecific white matter changes. Electronically signed by: Armin Huerta DO 06/02/2024 01:59 PM EST
--- NOTE | ~2024-06-02 | CT_ITS ---
EXAMINATION: CTA NECK WITH CONTRAST (STROKE) CTA BRAIN WITH CONTRAST (STROKE) CLINICAL INFORMATION: Suspect acute stroke. Assess for major vessel occlusion. Headache right sided deficits COMPARISON: None available. TECHNIQUE: Serial axial images were obtained on a multidetector CT through the head without the use of intravenous contrast, as per the standard departmental protocol. Multiplanar 2D MPR reformatted images were then obtained. CTA of the head and neck was performed after the administration of intravenous contrast according to the departmental protocol. MIP 3D angiographic rendering was then performed at the scanner. Evaluation for stenosis of the carotid arteries was made based on NASCET criteria, with evaluation of any areas of focal narrowing relative to the distal vessel (using minimal luminal diameter). Measurement of the distal internal carotid artery diameter was used as the denominator for stenosis measurement. Contrast was administered given the patient's clinical history. 80mL Omnipaque [address] exams at this location are performed using dose optimization techniques as appropriate to a performed exam including at least one of the following: * Automated exposure control * Adjustment of the mA and/or kV according to patient size (this includes techniques or standardized protocols for targeted exams where dose is matched to indication / reason for exam; i/e/ extremities or head) * Use of iterative reconstructive technique DLP: 1258 mGy-cm COMPARISON: None FINDINGS: CTA Head: The intracranial internal carotid arteries are normal in configuration. The anterior and middle cerebral arteries are patent with normal contrast enhancement and branching pattern. There is a normal anterior communicating artery complex. The vertebral and basilar arteries demonstrate normal enhancement without stenosis or occlusion. The posterior cerebral arteries have a normal caliber and branching pattern. The posterior communicating arteries are visualized. There is no evidence of stenosis, occlusion, aneurysm or arteriovenous malformation. CTA Neck: The visualized aortic arch and origins of the major vessels are unremarkable. The right common, internal and external carotid arteries are normal in appearance. There is no evidence of a significant stenosis by NASCET criteria or a dissection. The left common, internal and external carotid arteries are normal in appearance. There is no evidence of a significant stenosis by NASCET criteria or a dissection. The cervical portions of the vertebral arteries demonstrate normal enhancement. There is no evidence of a significant stenosis or a dissection. The visualized soft tissues are unremarkable. The visualized lung is unremarkable. The visualized osseous structures are unremarkable. CT/CT angio head neck STROKE IMPRESSION: Unremarkable CTA of the head and neck. Electronically signed by: Blanca Bradley MD 06/02/2024 12:02 PM [facility]
[2024-06-02 08:10] VITALS: BP 104/65; PULSE 89; RESP 16; TEMP 36.2; O2SAT 100; BMI 30.1
--- NOTE | 2024-06-02 08:16 | ECG_ITS ---
Test Reason : DIZZY Blood Pressure : / mmHG Vent. Rate : 059 BPM Atrial Rate : 059 BPM P-R Int : 156 ms QRS Dur : 088 ms QT Int : 448 ms P-R-T Axes : 008 066 018 degrees QTc Int : 443 ms Sinus bradycardia Otherwise normal ECG No previous ECGs available Referred By: Generic ED Physician Electronically Signed By:CONNIE JASMINE
--- NOTE | 2024-06-02 08:53 | ED_ITS ---
HPI - Headache General Chief Complaint: Headache Stated Complaint: head pressure eye twitching dizzy quest med react Time Seen by Provider: 06/02/24 08:31 Source: patient and old records reviewed Mode of arrival: ambulatory Limitations: no limitations History of Present Illness ED Provider: LILA RUTLEDGE Narrative: 29 yo female with PMH of PTSD just started on new clonidine increased dose 0.2 on , epilepsy on gabapentin no seizures in 6 years, migraines with aura who notes she went to gym today and at 7am started to feel weird with aching pain on R side of head and black spots in her eyes - she has had black spots before during migraine but all of this feels different. She feels weak throughout. She is not on thinners, has IUD no recent neck trauma or manipulation. This is the first work out with clonidine. She did eat this AM as well. MD elicited complaint: headache Pertinent past history: migraines Onset (ago): hour(s) (7am) Time: 07:00 Onset description: gradually Location: right, frontal, temporal and parietal Quality & Timing: aching and constant Exacerbating factors: movement of head/neck Relieving factors: nothing Context: occurred with exertion/activity Associated symptoms: nausea, photophobia and scotoma Treatments prior to arrival: none Related Data Home Medications ?Medication ?Instructions ?Recorded ?Confirmed gabapentin 300 mg capsule 300 mg PO TID 10/10/22 06/02/24 bupropion HCl 100 mg tablet,12 hr 100 mg PO BID 05/29/24 06/02/24 sustained-release clonidine HCl 0.2 mg tablet 0.2 mg PO DAILY 05/29/24 06/02/24 trazodone 100 mg tablet 100 mg PO BEDTIME 05/29/24 06/02/24 Previous Rx's ?Medication ?Instructions ?Recorded albuterol sulfate 90 mcg/actuation 1 inh inhalation QID PRN shortness 09/01/21 aerosol inhaler of breath or wheezing #6.7 grams acetaminophen 500 mg capsule 500 mg PO Q6H PRN fever #30 caps 07/06/23 ondansetron 4 mg disintegrating 4 mg PO Q8H PRN nausea and 06/02/24 tablet vomiting #20 tabs sumatriptan succinate 50 mg tablet See Rx Instructions PO .COMPLEX 06/02/24 #10 tabs Allergies Allergy/AdvReac Type Severity Reaction Status Date / Time nut - unspecified [NUTS] Allergy Unknown SWELLING Verified 06/02/24 08:12 THROAT, Face, HIVES oxcarbazepine AdvReac Intermediate RASH Verified 06/02/24 08:12 [From TRILEPTAL] Review of Systems 2 Review of Systems: Constitutional : No Fever, No Chills, No Fatigue ENT/Mouth : No sore throat, No Rhinorrhea Eyes: No Eye Pain, No Swelling, No Redness Cardiovascular : No Chest Pain, No SOB, No Dyspnea on Exertion Respiratory : No Cough, No Sputum Gastrointestinal : No Nausea, No Vomiting, No Diarrhea, No abdominal Pain Genitourinary : No Dysuria, No Urinary Frequency, No Hematuria, Musculoskeletal : No joint pain, No Myalgias, No Joint Swelling Skin : No Skin Lesions, No rash Neuro : pos Weakness, No Numbness, No Dizziness, positive Headache All other systems reviewed and are negative [facility] Past Medical History Attestation statement: The following information was validated with the patient. Source: old records reviewed Medical History Chronic headaches Migraines Family History Family History Maternal Grandmother Breast cancer Social History Social History Alcohol intake: never Patient Tobacco Use Status: Never used Tobacco Smoked in Last 30 Days: No Use of substances other than those prescribed or required for medical reasons: No Advance Directives: No Advance Directives Information Provided: Yes Do you have a plan to hurt others: No Plan Sexual orientation: Straight/Heterosexual Gender identity: Female Physical Exam 2 Vital Signs: Vital Signs: Last Vital Signs Temp 98.6 F 06/02/24 13:57 Pulse 61 06/02/24 13:57 Resp 15 06/02/24 13:57 BP 107/63 06/02/24 13:57 Pulse Ox 99 06/02/24 13:57 O2 Del Method Room Air 06/02/24 13:57 BMI result Body Mass Index 30.1 Appearance: Alert. Oriented X3. No acute distress. Eyes: Pupils equal, round and reactive to light. ENT: Pharynx normal. Neck: Normal inspection. Neck supple. CVS: Normal heart rate and rhythm. Pulses normal. Respiratory: No respiratory distress. Breath sounds normal. Abdomen: Soft and nontender. Skin: Skin warm and dry. Normal skin color. Normal skin turgor. Extremities: No lower extremity edema. No calf ttp Neuro: Oriented X 3. 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, arm and R leg 4+/5 on repeat exams NIH Stroke Scale Internal: Initial- Upon Arrival Level of Consciousness: Alert Level of Consciousness Questions: Answers both questions correctly Level of Consciousness Commands: Performs both tasks correctly Best Gaze: Normal Visual: No visual loss Facial Palsy: Normal Motor Arm (Right): Drift Motor Arm (Left): No drift Motor Leg (Right): No drift Motor Leg (Left): Drift Limb Ataxia: Absent Sensory: Normal Best Language: No aphasia Dysarthia: Normal Extinction and Inattention: No abnormality Score: 2 Course Course Course Narrative: call to neuro 915am Reevaluation(s) Reevaluation #1: Dr. Hinton discussed case he feels this is likely complex migraine hold TNK Reevaluation #2: texting with R hand on phone and holding it no issues on repeat exam still has residual R hand weakness but ?effort as the squeeze fluctuates from weak to intense and symmetrical to the left - plan for MRI for full rule out Medications Administered Discontinued Medications Generic Name Dose Route Start Last Admin Trade Name Betys PRKeli Reason Stop Dose Admin Diphenhydramine HCl 25 mg 06/02/24 08:53 06/02/24 09:43 Diphenhydramine Hcl 50 Mg/Ml Vial IVPUSH 06/02/24 08:54 25 mg ONCE ONE Administration Sodium Chloride 1,000 mls @ 999 mls/hr 06/02/24 08:47 06/02/24 11:59 Ns IV 06/02/24 09:47 Infused .Q1H1M ONE Infusion Sodium Chloride 1,000 mls @ 999 mls/hr 06/02/24 10:40 06/02/24 12:00 Ns IV 06/02/24 11:40 Infused .Q1H1M ONE Infusion Iohexol 70 ml 06/02/24 09:28 06/02/24 09:29 Iohexol 350 Mg/Ml 75 Ml Infus..Btl IV 06/02/24 09:29 70 ml ONCE ONE Administration Ketorolac Tromethamine 15 mg 06/02/24 09:24 06/02/24 09:43 Ketorolac Tromethamine 15 Mg/Ml Vial IVPUSH 06/02/24 09:25 15 mg ONCE ONE Administration Metoclopramide HCl 10 mg 06/02/24 08:53 06/02/24 09:43 Metoclopramide Hcl 10 Mg/2 Ml Vial IVPUSH 06/02/24 08:54 10 mg ONCE ONE Administration Medical Decision Making Medical Decision Making MDM Narrative: 29 yo female with PMH of PTSD just started on new clonidine increased dose 0.2 on , epilepsy on gabapentin no seizures in 6 years, migraines with aura here wtih headache at 7am and some visual changes scotomas in R eye as well as feeling like her R arm and leg feel tingling and weak. She notes she didn't realize the R sided deficits but they just felt tired. She has not had stroke before, has IUD, was treated for UTI with macrobid recently but no URI, she has not had neck manipulation or trauma. given her headache could be dissection vs stroke vs complex migraine I have ordered her labs, stroke protocol, fluids and meds Differential Diagnosis Differential Diagnoses: The differential diagnosis associated with the presentation includes dissection vs stroke vs complex migraine Admission/Observation Consideration of admission/observation: Escalation of care including admission/observation considered CTA labs and MRI negative suspect complex migraine will send home with precautions and DC clonidine 0.2mg strength has returned on prior testing she has no ataxia no facial deficits she is feeling much better and feels safe with DC Consult Healthcare Provider Management of the patient was discussed with: Business Office Manager Lab Data [facility] Lab Attestation statement: I reviewed the patient's lab results. 06/02/24 09:02 06/02/24 09:02 Labs: Lab Results 06/02/24 06/02/24 06/02/24 Range/Units 08:53 08:54 09:01 WBC (4.8-10.8) X10*3/uL RBC (4.20-5.50) X10*6/uL Hgb (12.0-16.0) g/dl Hct (37.0-47.0) % MCV (80.0-98.0) fL MCH (27.0-33.0) pg MCHC (31.0-35.0) g/dl RDW (11.0-16.0) % Plt Count (160-400) X10*3/uL MPV (9.4-12.3) fL Immature Gran % (Auto) (0.0-0.4) % Neut % (Auto) (45-73) % Lymph % (Auto) (20-40) % [place] % (Auto) (2-11) % Eos % (Auto) (0-4) % Baso % (Auto) (0-2) % Lymph # (Auto) (1.2-4.9) X10*3/uL [place] # (Auto) (0.1-1.2) X10*3/uL Eos # (Auto) (0.0-0.4) X10*3/uL Baso # (Auto) (0.0-0.2) X10*3/uL Abs Immat Gran (auto) (0.00-0.03) X10*3/uL Absolute Neuts (auto) (2.0-8.3) x10*3/uL Absolute Nucleated RBC (0.0-0.012) X10*3/uL Nucleated RBC % (auto) (0.0-0.2) /100WBC ESR (0-20) MM/HR PT (10.9-12.4) SEC Whole Blood PT 12.6 (11.1-13.5) sec INR (0.9-1.1) Whole Blood INR 1.0 (0.9-1.1) APTT (26.0-36.8) SEC Sodium (135-145) mmol/L Potassium (3.3-5.1) mmol/L Chloride (96-108) mmol/L Carbon Dioxide (22-29) mmol/L Anion Gap (12-20) BUN (9-16) mg/dL Creatinine (0.5-1.4) mg/dL Estim Creat Clear Calc Estimated GFR POC Glucose 96 (60-115) mg/dL Random Glucose (60-115) mg/dL Calcium (8.4-10.2) mg/dL Magnesium 2.4 (1.6-2.6) mg/dL Total Bilirubin (0.0-1.0) mg/dL AST (5-31) U/L ALT (0-31) U/L Alkaline Phosphatase (39-117) U/L C-Reactive Protein < 0.10 (< or = 0.50) mg/dL Total Protein (6.5-8.0) g/dL Albumin (3.5-5.0) g/dL Beta HCG, Quant 4 mIU/mL 06/02/24 Range/Units 09:02 WBC 7.9 (4.8-10.8) X10*3/uL RBC 4.39 (4.20-5.50) X10*6/uL Hgb 13.6 (12.0-16.0) g/dl Hct 39.5 (37.0-47.0) % MCV 90.0 (80.0-98.0) fL MCH 31.0 (27.0-33.0) pg MCHC 34.4 (31.0-35.0) g/dl RDW 11.4 (11.0-16.0) % Plt Count 272 (160-400) X10*3/uL MPV 9.4 (9.4-12.3) fL Immature Gran % (Auto) 0.4 (0.0-0.4) % Neut % (Auto) 71.3 (45-73) % Lymph % (Auto) 19.3 L (20-40) % [place] % (Auto) 7.1 (2-11) % Eos % (Auto) 1.4 (0-4) % Baso % (Auto) 0.5 (0-2) % Lymph # (Auto) 1.5 (1.2-4.9) X10*3/uL [place] # (Auto) 0.6 (0.1-1.2) X10*3/uL Eos # (Auto) 0.1 (0.0-0.4) X10*3/uL Baso # (Auto) 0.0 (0.0-0.2) X10*3/uL Abs Immat Gran (auto) 0.03 (0.00-0.03) X10*3/uL Absolute Neuts (auto) 5.7 (2.0-8.3) x10*3/uL Absolute Nucleated RBC 0.000 (0.0-0.012) X10*3/uL Nucleated RBC % (auto) 0.0 (0.0-0.2) /100WBC ESR 10 (0-20) MM/HR PT 11.3 (10.9-12.4) SEC Whole Blood PT (11.1-13.5) sec INR 1.0 (0.9-1.1) Whole Blood INR (0.9-1.1) APTT 26.4 (26.0-36.8) SEC Sodium 136 (135-145) mmol/L Potassium 3.5 (3.3-5.1) mmol/L Chloride 102 (96-108) mmol/L Carbon Dioxide 26 (22-29) mmol/L Anion Gap 12 (12-20) BUN 10 (9-16) mg/dL Creatinine 1.05 (0.5-1.4) mg/dL Estim Creat Clear Calc 76.3 Estimated GFR > 60 POC Glucose (60-115) mg/dL Random Glucose 100 (60-115) mg/dL Calcium 8.9 (8.4-10.2) mg/dL Magnesium (1.6-2.6) mg/dL Total Bilirubin 0.5 (0.0-1.0) mg/dL AST 17 (5-31) U/L ALT 14 (0-31) U/L Alkaline Phosphatase 77 (39-117) U/L C-Reactive Protein (< or = 0.50) mg/dL Total Protein 7.3 (6.5-8.0) g/dL Albumin 4.3 (3.5-5.0) g/dL Beta HCG, Quant mIU/mL Independent Interpretation I performed an independent interpretation of an: EKG and CT Scan (normal ) Interpretation: Rate: 59 Rhythm: NSR [place]: normal Normal P waves. Normal HUMAIRA. Normal QRS complex. ST T wave : t wave inversions V1 and V2, no LANDON qTC: 443 prior studies: no acute ischemia The study has been interpreted contemporaneously by me. . Radiology Impression Discussion of test interpretation with radiology: I discussed test interpretation with the radiologist and I have reviewed the radiologist's reading. Radiologist Impression: 916am negative non con no acute findings on CTA CT head or MRI External Record Review External record reviewed: Outpatient record Prescription Management I considered prescription management with: Pain Medication and Other Critical Care Time Critical Care Time Critical Care Time: Yes Total Critical Care Time: 45 Attestation: stroke protocol, repeat assessments, consult I attest to this time spent taking care of the patient Discharge Plan Discharge Clinical Impression: Migraine Patient Disposition: Home, Self-Care Instructions: Migraine Headache (ED) Additional Instructions: your labs, lytes and work up was reassuring CT scan of head - no mass, bleed, tearing of blood vessels it all looks good for your age MRI no acute stroke noted this is suspected complex migraine given your symptoms PLEASE STOP TAKING 0.2MG CLONIDINE return for any worsening symptoms or concerns you should follow up with neurologist given the presentation or discuss with your primary care doctor rest and stay hydrated Prescriptions: New ondansetron 4 mg tablet,disintegrating 4 mg PO Q8H PRN (Reason: nausea and vomiting) Qty: 20 0RF sumatriptan succinate 50 mg tablet See Rx Instructions .ROUTE .COMPLEX Qty: 10 0RF Rx Instructions: take 1 tab at onset of headache; if no relief may repeat 1 tab after at least 2 hrs; max = 4 tabs/24 hr No Action albuterol sulfate 90 mcg/actuation HFA aerosol inhaler 1 inh inhalation QID PRN (Reason: shortness of breath or wheezing) Qty: 6.7 1RF acetaminophen 500 mg capsule 500 mg PO Q6H PRN (Reason: fever) Qty: 30 0RF gabapentin 300 mg capsule 300 mg PO TID clonidine HCl 0.2 mg tablet 0.2 mg PO DAILY trazodone 100 mg tablet 100 mg PO BEDTIME bupropion HCl 100 mg tablet sustained-release 12 hr 100 mg PO BID Stand Alone Forms: Work/School Release Print Language: Syrian
[2024-06-02 08:57] LABS: Prothrombin Time Whole Bld POC 12.6 sec (11.1-13.5)
[2024-06-02 08:57] LABS: Glucose, Whole Blood 96 mg/dL (60-115)
--- NOTE | 2024-06-02 09:05 | PC.NURSE ---
Labs drawn and sent as ordered
--- NOTE | 2024-06-02 09:05 | PC.NURSE ---
Pt. in CT at this time
[2024-06-02 09:09] LABS: Basophils Percent Auto 0.5 % (0-2); Eosinophils Absolute Auto 0.1 X10*3/uL (0.0-0.4); Eosinophils Percent Auto 1.4 % (0-4); Hematocrit 39.5 % (37.0-47.0); Hemoglobin 13.6 g/dl (12.0-16.0); Imm Gran Abs Auto 0.03 X10*3/uL (0.00-0.03); Imm Gran Pct Auto 0.4 % (0.0-0.4); Lymphocytes Absolute Auto 1.5 X10*3/uL (1.2-4.9); Lymphocytes Percent Auto 19.3 % (20-40); MANUAL DIFF FLAG NO; Mean Corpuscular HGB Conc 34.4 g/dl (31.0-35.0); Mean Platelet Volume 9.4 fL (9.4-12.3); Monocytes Absolute Auto 0.6 X10*3/uL (0.1-1.2); Monocytes Percent Auto 7.1 % (2-11); Neutrophils Absolute Auto 5.7 x10*3/uL (2.0-8.3); Neutrophils Percent Auto 71.3 % (45-73); Platelet Count 272 X10*3/uL (160-400); Red Blood Count 4.39 X10*6/uL (4.20-5.50); Red Cell Distribution Width 11.4 % (11.0-16.0); White Blood Count 7.9 X10*3/uL (4.8-10.8)
[2024-06-02 09:15] LABS: Prothrombin Time 11.3 SEC (10.9-12.4)
[2024-06-02 09:17] LABS: Partial Thromboplastin Time 26.4 SEC (26.0-36.8)
[2024-06-02 09:23] LABS: Alanine Aminotransferase 14 U/L (0-31); Albumin Level 4.3 g/dL (3.5-5.0); Alkaline Phosphatase 77 U/L (39-117); Anion Gap 12 (12-20); Aspartate Amino Transferase 17 U/L (5-31); Bilirubin Total 0.5 mg/dL (0.0-1.0); Blood Urea Nitrogen 10 mg/dL (9-16); Calcium 8.9 mg/dL (8.4-10.2); Carbon Dioxide 26 mmol/L (22-29); Chloride 102 mmol/L (96-108); Creatinine Clr Calc Pharmacy 76.3; Estimated Glomerular Filt Rate > 60; Glucose Random 100 mg/dL (60-115); Potassium 3.5 mmol/L (3.3-5.1); Sodium 136 mmol/L (135-145); Total Protein 7.3 g/dL (6.5-8.0)
[2024-06-02 09:29] LABS: C Reactive Protein < 0.10 mg/dL (< or = 0.50); HCG Quantitative 4 mIU/mL; Magnesium 2.4 mg/dL (1.6-2.6)
[2024-06-02] MEDS: iohexoL 350 MG/ML 75 ML INFUS..BTL 70 ML IV (09:29)
[2024-06-02] MEDS: Metoclopramide HCl 10 MG/2 ML VIAL IVPUSH (09:43)
[2024-06-02] MEDS: Ketorolac Tromethamine 15 MG/ML VIAL IVPUSH (09:43)
[2024-06-02] MEDS: diphenhydrAMINE HCL 50 MG/ML VIAL 25 MG IVPUSH (09:43)
[2024-06-02] MEDS: 0.9 % Sodium Chloride 1,000 ML 999 ML IV ×2 (09:44→10:51)
[2024-06-02 09:52] LABS: Erythrocyte Sedimentation Rate 10 MM/HR (0-20)
[2024-06-02 10:05] VITALS: BP 98/51; PULSE 58; RESP 18; TEMP 36.6; O2SAT 99
[2024-06-02 10:52] VITALS: BP 103/62; PULSE 64; RESP 14; O2SAT 100
[2024-06-02 13:57] VITALS: BP 107/63; PULSE 61; RESP 15; TEMP 37; O2SAT 99
[2024-06-02 15:20] VITALS: BP 107/63; PULSE 61; RESP 15; TEMP 37; O2SAT 99
== END 2024-06-02 15:20 | disposition home or self-care (01) ==
PROVIDERS: Emergency Provider Emergency Medicine; PCP Internal Medicine
DX: G43.909 Migraine, unspecified, not intractable, without status migrainosus (principal); R42 Dizziness and giddiness; M54.2 Cervicalgia; R11.0 Nausea; R10.2 Pelvic and perineal pain; H53.453 Other localized visual field defect, bilateral; Z79.899 Other long term (current) drug therapy
CPT/HCPCS: 36415; 70450; 70496; 70498; 70551; 80053; 82947; 83735; 84702; 85025; 85610; 85652; 85730; 86140; 93005; 96361; 96374; 96375; 99285; J1200; J1885; J2765; Q9967

== ENCOUNTER → 2024-06-02 08:16 | Outpatient (BNV) | payer OTHER, SELFPAY | PROVIDERS: Emergency Provider Emergency Medicine; PCP Internal Medicine; Visit Provider Internal Medicine | DX: R42 Dizziness and giddiness (principal); R00.1 Bradycardia, unspecified | CPT/HCPCS: 93010 ==

== ENCOUNTER 2024-08-08 13:28 | Outpatient (REF) | payer OTHER, SELFPAY ==
--- NOTE | ~2024-08-08 | XR_ITS ---
EXAMINATION: XR ANKLE, RIGHT CLINICAL INFORMATION: S93.401A - Sprain of unspecified ligament of right ankle, initial encounter COMPARISON: None available. TECHNIQUE: AP, lateral, and mortise views of the right ankle. FINDINGS: No fracture. Alignment is anatomic. No erosions. Joint spaces are maintained. Mortise is intact. Talar dome is normal. Subtalar joints and calcaneus appear normal. No evidence of ankle joint effusion. Soft tissues appear normal. XR/XR ankle RT min 3V IMPRESSION: Normal right ankle. Electronically signed by: Efrain Antunez MD 08/08/2024 02:20 PM [facility]
== END 2024-08-08 13:29 | disposition home or self-care (01) ==
LOC: HO.HMGCX 13:28
PROVIDERS: PCP Internal Medicine; Visit Provider Physician Assistant Medical
DX: S93.401A Sprain of unspecified ligament of right ankle, initial encounter (principal)
CPT/HCPCS: 73610

== ENCOUNTER 2024-08-08 13:28 | Outpatient (AMB) | payer OTHER, SELFPAY ==
[2024-08-08 13:32] VITALS: BP 110/70; PULSE 68; O2SAT 99
--- NOTE | 2024-08-08 13:32 | MHC.OFFWIV ---
Intake Vital Signs 08/08/24 13:32 Weight 166 lb BP 110/70 Blood Pressure Location Rt brachial Position Sitting Pulse 68 Pulse Source Pulse Oximeter Pulse Oximetry (%) 99 Oxygen Delivery Method Room Air Intake Visit Reasons: EP sprained RT ankle Intake Note: Patient here for right ankle pain after she had a fall while rock climbing 10ft in the air which was Jul 25. Patient Tobacco Use Status: Never used Tobacco Allergies nut - unspecified [NUTS] Allergy (Unknown, Verified 08/08/24 13:33) SWELLING THROAT, Face, HIVES oxcarbazepine [From TRILEPTAL] Adverse Reaction (Intermediate, Verified 08/08/24 13:33) RASH Do you need a note to return to daycare/school/sports/work: No HPI HPI Comments History of Present Illness Details This is a 29-year-old female who presented to the walk-in clinic complaining of persistent right ankle pain. Patient states she sprained her right ankle on 07/25/2024. She was rock climbing and fell about 10 ft and landed on her inverted right ankle. She was seen at a different urgent care and underwent x-rays at that time, which were negative for acute fracture/dislocation. Since then, patient has been resting, icing, compressing with an hayder bandage, and elevating her right leg. Patient states that she continues to have right ankle pain, which occasionally shoots into her right calf. She denies any numbness/weakness/paresthesias of her right lower extremity. She states that the right ankle was bruised and swollen following the initial injury although this appears to have resolved. She states the right ankle pain is worsened with inversion and eversion of the ankle. She is able to bear weight and ambulate. [facility] Medical History Chronic headaches Migraines Family History Maternal Grandmother Breast cancer Social History Alcohol intake: never Patient Tobacco Use Status: Never used Tobacco Sexual orientation: Straight/Heterosexual Gender identity: Female Female Reproductive History Menstrual Age of Menarche: 12 Review of Systems Const All systems reviewed & are unremarkable except as noted in HPI and below Reports no additional complaints Eyes Reports no additional complaints ENT Reports no additional complaints Card Reports no additional complaints Resp Reports no additional complaints GI Reports no additional complaints Reports no additional complaints Musc Reports no additional complaints Skin/Breast Reports system reviewed and no additional complaints, except as documented Neuro Reports no additional complaints Psych Reports no additional complaints Endo Reports no additional complaints Toney/Lymph Reports no additional complaints Aller/Immun Reports no additional complaints Physical Exam Vital Signs: Last Vital Signs Pulse 68 08/08/24 13:32 BP 110/70 08/08/24 13:32 Pulse Ox 99 08/08/24 13:32 Oxygen Delivery Method Room Air 08/08/24 13:32 Const Other: Vital signs reviewed. Constitutional: Non-toxic appearing. No acute distress. Well-developed and well-nourished. HEENT: Normocephalic and atraumatic. Skin: Warm and dry. No rashes or lesions noted. Neck: Full and painless range of motion. No cervical lymphadenopathy. Cardio: Regular rate. No lower extremity edema. No JVD. Pulmonary: No respiratory distress. No accessory muscle usage. Musculoskeletal: There is mild tenderness to palpation of the right lateral malleolus. She has increased pain with inversion/eversion of the right ankle. There is no swelling/ecchymosis of the right ankle. There is no tenderness to palpation of the metatarsals of the right foot or the tibia/fibula. No right calf tenderness to palpation or swelling. Neuro: Alert and oriented x4. Cranial nerves 2-12 grossly intact. No focal deficits appreciated. Psych: Normal mood and affect. Assessment & Plan Assessment & Plan (1) Moderate right ankle sprain: Code(s): S93.401A - Sprain of unspecified ligament of right ankle, initial encounter Qualifiers: Encounter type: initial encounter Qualified Code(s): S93.401A - Sprain of unspecified ligament of right ankle, initial encounter Plan: This is a 29-year-old female who presented to the walk-in clinic complaining of persistent right ankle pain following inversion injury on 07/25/2024. A repeat right ankle x-ray was obtained, which was negative for acute fracture or dislocation. History and physical most consistent with moderate right ankle sprain. Recommended continuing supportive management including rest/activity modification, ice to the area, compression with Hayder bandage, and elevation of the right lower extremity and patient was provided with an ankle brace for more support to be worn during the day. She was also given a referral to orthopedics for further evaluation given persistent pain. I offered physical therapy referral but patient declined. Patient was advised to follow-up here or proceed to the emergency room if she were to develop persistent or worsening symptoms. Patient verbalized understanding and she is in agreement with the plan. Orders: Referrals Orthopedics Referral S93.401A - Sprain of unspecified ligament of right ankle, initial encounter Coding Level of Care Code New Pt Level 3 (61759) Diagnoses Moderate right ankle sprain, initial encounter S93.401A Encounter type: initial encounter
== END 2024-08-08 15:02 | disposition home or self-care (01) ==
PROVIDERS: PCP Internal Medicine; Visit Provider Physician Assistant Medical
DX: S93.401A Sprain of unspecified ligament of right ankle, initial encounter (principal)

== ENCOUNTER → 2024-08-08 14:09 | Outpatient (BNV) | payer OTHER, SELFPAY | PROVIDERS: PCP Internal Medicine; Visit Provider Radiology Diagnostic Radiology | DX: S93.401A Sprain of unspecified ligament of right ankle, initial encounter (principal) | CPT/HCPCS: 73610 ==

== ENCOUNTER 2024-09-08 08:17 | Outpatient (REF) | payer OTHER, SELFPAY ==
--- NOTE | ~2024-09-08 | XR_ITS ---
EXAMINATION: XR ANKLE 3 OR MORE VIEWS RIGHT HISTORY: M25.571 - Pain in right ankle and joints of right foot COMPARISON: Comparison is made with the prior examination dated 08/08/2024. FINDINGS: Three views of the right ankle are submitted. Osseous mineralization is normal. There is no fracture or dislocation. The joint spaces are preserved. The soft tissues are unremarkable. XR/XR ankle RT min 3V IMPRESSION: Unremarkable examination of the right ankle. Electronically signed by: Aravind Shelley MD 09/09/2024 01:45 PM EDT
== END 2024-09-08 08:18 | disposition home or self-care (01) ==
LOC: HO.HOSX 08:17
DX: M25.571 Pain in right ankle and joints of right foot (principal)
CPT/HCPCS: 73610

== ENCOUNTER 2024-09-08 11:19 | Outpatient (AMB) | payer OTHER, SELFPAY ==
--- NOTE | 2024-09-08 11:24 | MHC.OFFVIS ---
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 Patient reports she was free climbing at a rock climbing gym in [place] and says she fell down 12 feet on the mats. Falling on her right leg first, her ankle rolled and made a loud popping noise. She says she is able to ambulate normally however if she tries to pivot or move a certain way she has extreme sharp pains. Denies numbness and tingling. She takes Tylenol and ibuprofen which provides her with relief. She has tried a brace for stability and says this helps her foot move in a way that does not cause pain. 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 Patient reports she was free climbing at a rock climbing gym in [place] and says she fell down 12 feet on the mats. Falling on her right leg first, her ankle rolled and made a loud popping noise. She says she is able to ambulate normally however if she tries to pivot or move a certain way she has extreme sharp pains. Denies numbness and tingling. She takes Tylenol and ibuprofen which provides her with relief. She has tried a brace for stability and says this helps her foot move in a way that does not cause pain. 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 Sexual orientation: Straight/Heterosexual Gender identity: Female Female Reproductive History Menstrual Age of Menarche: 12 Review of Systems Const All systems reviewed & are unremarkable except as noted in HPI and below Physical Exam Vital Signs: BMI result Body Mass Index 29.2 Extrem Other: Patient's right ankle normal to inspection No erythema, ecchymosis, edema noted No lacerations, abrasions, open areas No evidence of infection Mild to moderate tenderness to palpation over the ATFL of the right ankle just distal to the lateral malleolus Patient reports no tenderness to palpation of the medial malleolus, proximal right foot, or elsewhere in the right foot and ankle Pain with both active and passive inversion of the right ankle Pain with active eversion of the right ankle Distal sensation intact Capillary refill brisk Results Reviewed Results Reviewed: X-rays obtained in the office today and independently reviewed by me, Damian Lopez PA-C, demonstrate no fracture or acute bony abnormality of the right ankle or proximal foot. Assessment & Plan Assessment & Plan (1) Right ankle sprain: Code(s): S93.401A - Sprain of unspecified ligament of right ankle, initial encounter Category: Medical Plan 1. Right ankle sprain Date of injury 07/25/2024 Patient was educated about this injury Patient is educated about the typical recovery course At this time, patient was educated that she should switch to more supportive footwear, as she has been wearing Crocs Patient was also educated that she should avoid running for the next 4-6 weeks Patient was referred to physical therapy for range of motion and strengthening of the right ankle in the setting of the right ankle sprain Patient was amenable to this plan Patient will follow-up as needed with any acute concerns Orders: Orders XR ankle RT min 3V Today M25.571 - Pain in right ankle and joints of right foot PT Evaluation and Treatment Today S93.401A - Sprain of unspecified ligament of right ankle, initial encounter Coding Level of Care Code New Pt Level 3 (06086) Diagnoses Right ankle sprain S93.401A
[2024-09-08 11:38] VITALS: BMI 29.2
== END 2024-09-08 11:50 | disposition home or self-care (01) ==
LOC: HO.HOS 11:20
PROVIDERS: PCP Internal Medicine
DX: S93.401A Sprain of unspecified ligament of right ankle, initial encounter (principal)
CPT/HCPCS: 99203

== ENCOUNTER → 2024-09-08 11:24 | Outpatient (BNV) | payer OTHER, SELFPAY | PROVIDERS: Visit Provider Radiology Diagnostic Radiology | DX: M25.571 Pain in right ankle and joints of right foot (principal) | CPT/HCPCS: 73610 ==

== ENCOUNTER 2024-09-16 10:19 | Outpatient (AMB) | payer OTHER, SELFPAY ==
[2024-09-16 10:27] VITALS: BP 114/64; PULSE 75; RESP 20; TEMP 37.3; O2SAT 98; BMI 29.9
--- NOTE | 2024-09-16 10:27 | A.OFFPC_ITS ---
Vital Signs 09/16/24 10:27 Height 5 ft 3 in Weight 168 lb 9.6 oz BMI 29.9 BP 114/64 Blood Pressure Location Lt brachial Position Sitting Respiration 20 Pulse 75 Pulse Source Pulse Oximeter Temp 99.2 F Temp Source Oral Pulse Oximetry (%) 98 Oxygen Delivery Method Room Air Intake Visit Reasons: Establish Care Intake Note: Patient is a new patient here to establish care. Transferring care from [facility] [place] [facility] in [place], [place]; Patient reports she was last seen by her previous PCP in that office prior to 2019. Medical records have not been requested and have been received. 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 Accompanied by: Self / Same As Patient Allergies nut - unspecified [NUTS] Allergy (Unknown, Verified 09/16/24 10:34) SWELLING THROAT, Face, HIVES oxcarbazepine [From TRILEPTAL] Adverse Reaction (Intermediate, Verified 09/16/24 10:34) RASH Medication List - Last Reconciled 09/16/24 by VIV Kline albuterol sulfate 90 mcg/actuation 1 inh inhalation QID PRN bupropion HCl SR 100 mg PO BID gabapentin 600 mg PO BID gabapentin 300 mg PO BEDTIME prazosin 2 mg PO BEDTIME trazodone 100 mg PO BEDTIME Tobacco use date assessed: 09/16/24 Dental Screening Dental Screen Date: 09/16/24 Did you have a dental visit in the last 12 months?: No Did you have a dental problem in the last 6 months where you did not have access to dental care?: No HPI Establish Care HPI Details Previous PCP: Has been using he [facility] Last visit: 2019 Last PE: have not had a PE in a while Specialist: orthopedics-sprain of right ankle in July, psychiatrist and therapist for anxiety and [id number] to 3 months, therapist weekly [place]BG[place] [facility] [place] Past medical history: Insomnia-trazodone and prozosin, allergy induced asthma- only need inhaler in the springtime Medications: Family HX: Problem: Reports that she is establish care because she needed a new epipen Patient reports that she is feeling good otherwise Reports she has allergy induced asthma only in the springtime Reports that she sees her psychiatrist in the due to three-month and she sees her therapist every week She denies chest pain, shortness of breath, heart palpitation or dizziness Denies abdominal pain or change in bowel habits Denies any urinary symptoms PFSH Medical History (Updated 09/16/24 @ 11:16 by VIV Kline) Anaphylaxis PTSD (post-traumatic stress disorder) Anxiety Allergy-induced asthma Chronic headaches Migraines Surgical History H/O removal of cyst Family History Maternal Grandmother Breast cancer Mother No problems noted. 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 1. Little interest or pleasure in doing things: several days 2. Feeling down, depressed, or hopeless: not at all 3. Trouble falling or staying asleep, or sleeping too much: more than half the days 4. Feeling tired or having little energy: several days 5. Poor appetite or overeating: several days 6. Feeling bad about yourself - or that you are a failure or have let yourself or your family down: not at all 7. Trouble concentrating on things, such as reading the newspaper or watching television: several days 8. Moving or speaking so slowly that other people could have noticed. Or the op posite - being so fidgety or restless that you have been moving around a lot more than usual: not at all 9. Thoughts that you would be better off or of hurting yourself in some way: not at all Total score: 6 Depression Screening Interpretation: Positive Depression Screening Done: Yes 80915 - PHQ-9 Billing: Yes Source: Developed by Drs. Aravind Beard, Luz Rodriguez, Lyndon Goldberg and colleagues, with an educational devon from [employer]. Thrive Questionnaire Date Thrive assessed: 09/16/24 I am a: Patient What is your living situation today?: I have a steady place to live Within the past 12 months, did the food you bought not last and you didn't have the money to get more?: Never true Within the past 12 months, did you worry whether your food would run out before you got money to buy more?: Never true Do you have trouble paying for medicines?: No Do you have trouble getting transportation to medical appointments?: No Do you have trouble paying your heating and electricity bill?: No Do you have trouble taking care of your child, family member or friend?: No Do you have trouble with day-to-day activities such as bathing, preparing meals, shopping, managing finances, etc.?: No Are you currently unemployed and looking for a job?: No Are you interested in more education?: Yes Please select the resources that you would like help with: None Currently or been in a relationship where the following occur: I choose not to answer THRIVE Score: 0 AUDIT C Alcohol Use Questionnaire (AUDIT-C) 1. How often do you have a drink containing alcohol?: Never Total Score: 0 ANDRÉS-7 AMB Questionnaire ANDRÉS-7 Date ANDRÉS - 7 assessed: 09/16/24 Feeling nervous, anxious, or on edge: 1 = Several days Not being able to stop or control worryin = Several days Worrying too much about different things: 1 = Several days Trouble relaxin = Several days Being so restless that it is hard to sit still: 1 = Several days Becoming easily annoyed or irritable: 1 = Several days Feeling afraid as if something awful might happen: 0 = Not at all Total ANDRÉS-7 score (0-4 normal; 5-9 mild; 10-14 moderate; 15-21 severe): 6 Source: Developed by Drs. Aravind Beard, Luz Rodriguez, Lyndon Goldberg and colleagues, with an educational devon from [employer]. Review of Systems Const Denies headache(s) Eyes Denies loss of vision ENT Denies vertigo, Denies dizziness, Denies headache(s) and Denies sore throat Card Denies chest pain, Denies leg edema and Denies lightheadedness Resp Denies cough, Denies hemoptysis and Denies wheezing GI Denies abdominal pain, Denies melena, Denies constipation, Denies diarrhea and Denies vomiting Denies urinary frequency, Denies dysuria and Denies urinary urgency Musc Denies arthralgias, Denies joint swelling, Denies numbness and Denies tingling Neuro Denies Abnormal speech present, Denies behavioral changes, Denies vertigo, Denies dizziness, Denies headache(s), Denies loss of vision, Denies memory loss, Denies numbness and Denies tingling Psych Denies anxiety, Denies behavioral changes, Denies depression, Denies memory loss and Denies panic attacks Toney/Lymph Denies easy bleeding and Denies easy bruising Aller/Immun Denies wheezing Physical exam (Primary Care) Vital Signs: Last Vital Signs Temp 99.2 F 09/16/24 10:27 Pulse 75 09/16/24 10:27 Resp 20 09/16/24 10:27 BP 114/64 09/16/24 10:27 Pulse Ox 98 09/16/24 10:27 Oxygen Delivery Method Room Air 09/16/24 10:27 BMI result Body Mass Index 29.9 Tobacco/Smoking Status: Tobacco use Status Tobacco use date assessed 09/16/24 09/16/24 10:43 Patient Tobacco Use Status Never used Tobacco 09/16/24 10:40 e-Cigarette/Vaping Use Never Used 09/16/24 10:43 PHQ-9: PHQ-9 Score PHQ-9: Total score 6 09/16/24 10:43 Depression Screening Interpretation: Positive Thrive Assessment: Date of Thrive Assessment Date Thrive assessed 09/16/24 09/16/24 10:43 Currently or been in a relationship where the following occur: I choose not to answer Const General: healthy appearing, no acute distress, alert and awake Nutritional Appearance: well nourished Orientation/consciousness: oriented to person, oriented to place and oriented to time HENMT Ears: TM's normal bilaterally General nose exam: Normal nasal mucous membranes and turbinates present Eyes Conjunctivae: conjunctivae normal Sclerae: sclerae normal Pupils: Equal, round and reactive pupils present Neck Neck: Yes no lymphadenopathy and Yes no JVD Thyroid: Thyroid normal Carotids: no bruits Resp Effort & Inspection: normal respiratory effort and not tachypneic Auscultation: no crackles, no rales, no rhonchi and no wheezes Cardio Rate: regular rate Rhythm: regular rhythm Heart sounds: no murmurs and normal S1 and S2 GI Palpation (GI): Soft to palpation, nontender, no hepatomegaly and no splenomegaly Auscultation: normal bowel sounds Skin General skin exam: no rashes or lesions noted and dry skin Neuro General: oriented to person, oriented to place and oriented to time Cranial nerves: Yes Equal, round and reactive pupils present Speech: No Abnormal speech present Gait exam (Neuro): Normal gait present Motor exam (neuro): no tremor noted Extrem Right upper extremity: full ROM Left upper extremity: full ROM Right lower extremity: full ROM; no edema Left lower extremity: full ROM; no edema Psych Mental Status: mental status grossly normal Speech and movement: Normal speech and movement present Affect: normal affect Attitude: cooperative Thought process: Normal thought process present Coding Level of Care Code New Pt Level 3 (79427) Diagnoses Extrinsic asthma, unspecified asthma severity, unspecified whether complicated, unspecified whether persistent J45.909 Asthma severity: unspecified severity Asthma persistence: unspecified Asthma complication type: unspecified Anxiety F41.9 PTSD (post-traumatic stress disorder) F43.10 Insomnia, unspecified type G47.00 Insomnia type: unspecified Anaphylaxis, subsequent encounter T78.2XXD Encounter type: subsequent encounter Additional Codes PHQ-9 - 79578 - PHQ-9 Billing: Yes ([id number]) Time Spent (min) 27 Assessment & Plan Assessment & Plan (1) Allergy-induced asthma: Code(s): J45.909 - Unspecified asthma, uncomplicated Category: Medical Qualifiers: Asthma severity: unspecified severity Asthma persistence: unspecified Asthma complication type: unspecified Qualified Code(s): J45.909 - Unspecified asthma, uncomplicated Plan: Reports only using an rescue inhaler during the springtime (2) Anxiety: Code(s): F41.9 - Anxiety disorder, unspecified Category: Medical Plan: CBT-reports seeing a therapist weekly Continue Wellbutrin 100 mg b.i.d. and gabapentin 600 mg b.i.d. and 300 mg at bedtime Follow up with Psychiatry as scheduled (3) PTSD (post-traumatic stress disorder): Code(s): F43.10 - Post-traumatic stress disorder, unspecified Category: Medical Plan: Same as above (4) Insomnia: Code(s): G47.00 - Insomnia, unspecified Category: Medical Qualifiers: Insomnia type: unspecified Qualified Code(s): G47.00 - Insomnia, unspecified Plan: Reinforced sleep hygiene continue prazosin 2 mg at bedtime and trazodone 100 mg at bedtime (5) Anaphylaxis: Code(s): T78.2XXA - Anaphylactic shock, unspecified, initial encounter Category: Medical Qualifiers: Encounter type: subsequent encounter Qualified Code(s): T78.2XXD - Anaphylactic shock, unspecified, subsequent encounter Plan: EpiPen ordered Orders: Orders Comprehensive [place]. Panel Fast Today Z00.00 - Encounter for general adult medical examination without abnormal findings Complete Blood Count Auto Diff Today Z00.00 - Encounter for general adult medical examination without abnormal findings Vitamin D 25-OH Total Today Z00.00 - Encounter for general adult medical examination without abnormal findings Glucose Fasting Today Z00.00 - Encounter for general adult medical examination without abnormal findings Lipid Panel Today Z00.00 - Encounter for general adult medical examination without abnormal findings TSH reflex Free T4 Today Z00.00 - Encounter for general adult medical examination without abnormal findings UA CC w/rflx Micro + Cult Today Z00.00 - Encounter for general adult medical examination without abnormal findings Medications: New epinephrine (EpiPen 2-Nasim) for 2 doses 0.3 mg (0.3 mL) IM Q10M PRN 2 ea 2RF anaphylaxis
== END 2024-09-16 11:04 | disposition home or self-care (01) ==
LOC: HO.HMCH 10:20
PROVIDERS: PCP Internal Medicine
DX: J45.909 Unspecified asthma, uncomplicated (principal); F41.9 Anxiety disorder, unspecified; F43.10 Post-traumatic stress disorder, unspecified; G47.00 Insomnia, unspecified; T78.2XXD Anaphylactic shock, unspecified, subsequent encounter

== ENCOUNTER → 2024-09-16 10:19 | Outpatient (BNVA) | payer OTHER, SELFPAY | PROVIDERS: PCP Internal Medicine | DX: J45.909 Unspecified asthma, uncomplicated (principal); F41.9 Anxiety disorder, unspecified; F43.10 Post-traumatic stress disorder, unspecified; G47.00 Insomnia, unspecified; T78.2XXD Anaphylactic shock, unspecified, subsequent encounter; Z79.899 Other long term (current) drug therapy | CPT/HCPCS: 96127 ==

== ENCOUNTER → 2024-11-04 08:24 | Outpatient (BNVA) | payer OTHER, SELFPAY | PROVIDERS: PCP Internal Medicine | DX: Z00.00 Encounter for general adult medical examination without abnormal findings (principal); J45.909 Unspecified asthma, uncomplicated; G47.00 Insomnia, unspecified; F43.10 Post-traumatic stress disorder, unspecified; F41.9 Anxiety disorder, unspecified; T78.2XXD Anaphylactic shock, unspecified, subsequent encounter; X58.XXXD Exposure to other specified factors, subsequent encounter | CPT/HCPCS: 96127; 96160 ==

== ENCOUNTER 2024-11-06 09:29 | Outpatient (REF) | payer OTHER, SELFPAY ==
[2024-11-06 10:00] LABS: MANUAL DIFF FLAG NO
[2024-11-06 10:51] LABS: Basophils Absolute Auto 0.1 X10*3/uL (0.0-0.2); Basophils Percent Auto 0.8 % (0-2); Eosinophils Absolute Auto 0.2 X10*3/uL (0.0-0.4); Eosinophils Percent Auto 3.3 % (0-4); Hematocrit 40.6 % (37.0-47.0); Hemoglobin 13.6 g/dl (12.0-16.0); Imm Gran Abs Auto 0.02 X10*3/uL (0.00-0.03); Imm Gran Pct Auto 0.3 % (0.0-0.4); Lymphocytes Absolute Auto 1.7 X10*3/uL (1.2-4.9); Mean Corpuscular HGB Conc 33.5 g/dl (31.0-35.0); Mean Corpuscular Hemoglobin 30.4 pg (27.0-33.0); Mean Corpuscular Volume 90.6 fL (80.0-98.0); Mean Platelet Volume 9.8 fL (9.4-12.3); Monocytes Absolute Auto 0.6 X10*3/uL (0.1-1.2); Monocytes Percent Auto 9.7 % (2-11); Neutrophils Absolute Auto 3.4 x10*3/uL (2.0-8.3); Neutrophils Percent Auto 56.9 % (45-73); Platelet Count 244 X10*3/uL (160-400); Red Blood Count 4.48 X10*6/uL (4.20-5.50); Red Cell Distribution Width 11.9 % (11.0-16.0)
[2024-11-06 11:03] LABS: Appearance Urine Cloudy; Color Urine Yellow; Glucose Urine UA Negative (Negative); Leukocyte Esterase Urine Trace (Negative); Nitrite Urine Negative (Negative); PH 6.5 (5.0-9.0); UMIC TRIGGER UACC YES; Urine Blood Negative (Negative); Urine Ketones Trace mg/dL (Negative); Urine Protein Negative (Neg-Trace)
[2024-11-06 11:09] LABS: Bacteria Urine 1+ (None Seen); Hyaline Casts Urine 0-2 /LPF (0-2); RBC Urine 0-2 /HPF (0-2); WBC Urine 0-5 /HPF (0-5)
[2024-11-06 11:42] LABS: Alanine Aminotransferase 17 U/L (0-31); Albumin Level 4.4 g/dL (3.5-5.0); Alkaline Phosphatase 80 U/L (39-117); Anion Gap 10 (12-20); Aspartate Amino Transferase 17 U/L (5-31); Bilirubin Total 0.5 mg/dL (0.0-1.0); Blood Urea Nitrogen 8 mg/dL (9-16); Calcium 9.2 mg/dL (8.4-10.2); Carbon Dioxide 28 mmol/L (22-29); Chloride 107 mmol/L (96-108); Cholesterol 152 mg/dL (<200); Estimated Glomerular Filt Rate > 60; Glucose Fasting 93 mg/dL (60-99); HDL Cholesterol 47 mg/dL (>40); LDL Cholesterol Calculated 87 mg/dL (<100); Potassium 4.1 mmol/L (3.3-5.1); Sodium 141 mmol/L (135-145); Total Protein 7.1 g/dL (6.5-8.0); Triglycerides 93 mg/dL (<150)
[2024-11-06 12:07] LABS: TSH reflex Free T4 0.71 uIU/mL (0.32-4.0); Vitamin D 25-OH Total 27.2 ng/mL (>30)
== END 2024-11-06 09:30 | disposition home or self-care (01) ==
LOC: HO.LAB 09:29
DX: Z00.00 Encounter for general adult medical examination without abnormal findings (principal); Z13.6 Encounter for screening for cardiovascular disorders
CPT/HCPCS: 36415; 80053; 80061; 81001; 81003; 82306; 84443; 85025

== ENCOUNTER 2024-12-16 20:13 | Emergency (ER) | payer OTHER, SELFPAY ==
--- NOTE | 2024-12-16 | ECG_ITS ---
Test Reason : ALLERGIC REACTION Blood Pressure : */* mmHG Vent. Rate : 80 BPM Atrial Rate : 80 BPM P-R Int : 138 ms QRS Dur : 86 ms QT Int : 388 ms P-R-T Axes : 14 60 29 degrees QTcB Int : 447 ms Normal sinus rhythm Normal ECG When compared with ECG of 02-Jun-2024 10:03, No significant change was found Referred By: Generic ED Physician Electronically Signed By: ZAK ALCANTAR MD
[2024-12-16 20:19] VITALS: BP 126/80; BP 142/92; PULSE 118; PULSE 82; RESP 16; TEMP 37; O2SAT 100; O2SAT 93; BMI 28.3
[2024-12-16 20:33] VITALS: BP 126/80; PULSE 82; RESP 16; TEMP 37; O2SAT 93
[2024-12-16 20:34] LABS: MANUAL DIFF FLAG NO
[2024-12-16 20:35] LABS: Hematocrit 39.5 % (37.0-47.0); Hemoglobin 13.8 g/dl (12.0-16.0); Imm Gran Abs Auto 0.03 X10*3/uL (0.00-0.03); Imm Gran Pct Auto 0.3 % (0.0-0.4); Lymphocytes Absolute Auto 3.7 X10*3/uL (1.2-4.9); Mean Corpuscular HGB Conc 34.9 g/dl (31.0-35.0); Mean Corpuscular Hemoglobin 30.7 pg (27.0-33.0); Mean Corpuscular Volume 88.0 fL (80.0-98.0); NRBC Abs Auto 0.000 X10*3/uL (0.0-0.012); NRBC Pct Auto 0.0 /100WBC (0.0-0.2); Platelet Count 314 X10*3/uL (160-400); Red Blood Count 4.49 X10*6/uL (4.20-5.50); White Blood Count 10.9 X10*3/uL (4.8-10.8)
--- NOTE | 2024-12-16 20:35 | PC.NURSE ---
pt biba for allergic reaction. Pt felt facial swelling and redness along with throat tightening after ingesting a banana and 2 sugar cookies. Pt took benadryl at home but then felt the symptoms returned at this time pt took epi pen. Pt respirations are even and unlabored, throat is patent with no swelling.
[2024-12-16 20:59] LABS: Alanine Aminotransferase 19 U/L (0-31); Albumin Level 4.3 g/dL (3.5-5.0); Alkaline Phosphatase 94 U/L (39-117); Anion Gap 14 (12-20); Aspartate Amino Transferase 26 U/L (5-31); Blood Urea Nitrogen 9 mg/dL (9-16); Calcium 8.8 mg/dL (8.4-10.2); Carbon Dioxide 23 mmol/L (22-29); Chloride 107 mmol/L (96-108); Creatinine Clr Calc Pharmacy 102.3; Estimated Glomerular Filt Rate > 60; Potassium 3.5 mmol/L (3.3-5.1); Sodium 141 mmol/L (135-145); Total Protein 7.2 g/dL (6.5-8.0)
--- NOTE | 2024-12-16 21:26 | ED.ALLEREA ---
HPI - Allergic Reaction General Chief complaint: Allergic Reaction Stated complaint: allergic reaction to banana? 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 She slept for 4 hours. Woke up again had another cookie and developed hot flashes, throat scratching, odd tongue sensation around 730pm and self dosed 75mg more of benadryl and epi pen with good resolution. Now 2 hours after the fact she feels better. She threw away the cookies. Symptoms resolved. complaint: allergic reaction Onset (ago): hour(s) (1pm and 7pm today) Exposure: food Symptoms: itching, difficulty swallowing and hoarseness Severity: moderate Treatment prior to arrival: benadryl and epinephrine Previous Allergic Reaction History: prior ED visit(s) and anaphylaxis Related Data Home Medications ?Medication ?Instructions ?Recorded ?Confirmed bupropion HCl 100 mg tablet,12 hr 100 mg PO BID 05/29/24 11/04/24 sustained-release trazodone 100 mg tablet 100 mg PO BEDTIME 05/29/24 11/04/24 prazosin 1 mg capsule 2 mg PO BEDTIME 09/08/24 11/04/24 gabapentin 300 mg capsule 300 mg PO BEDTIME 09/16/24 11/04/24 gabapentin 300 mg capsule 600 mg PO BID 09/16/24 11/04/24 levonorgestrel 21 mcg/24 hr (up to intrauterine 11/04/24 11/04/24 8 years) 52 mg intrauterine device (Mirena) venlafaxine 37.5 mg 37.5 mg PO DAILY 11/04/24 11/04/24 capsule,extended release 24 hr Previous Rx's ?Medication ?Instructions ?Recorded albuterol sulfate 90 mcg/actuation 1 inh inhalation QID PRN shortness 09/01/21 aerosol inhaler of breath or wheezing #6.7 grams epinephrine 0.3 mg/0.3 mL 0.3 mg (0.3 mL) IM Q10M PRN 09/16/24 injection, auto-injector (EpiPen anaphylaxis #2 ea 2-Nasim) epinephrine 0.3 mg/0.3 mL 0.3 mg (0.3 mL) IM Q10M PRN 12/16/24 injection, auto-injector anaphylaxis #2 ea Allergies Allergy/AdvReac Type Severity Reaction Status Date / Time nut - unspecified (NUTS) Allergy Unknown SWELLING Verified 12/16/24 20:19 THROAT, Face, HIVES oxcarbazepine (From AdvReac Intermediate RASH Verified 12/16/24 20:19 TRILEPTAL) Review of Systems Review of Systems: Constitutional : No Fever, No Chills ENT/Mouth : positive oral swelling, No Hoarseness, No Swallowing Difficulty Eyes: No Eye Pain, No Swelling, No Redness Cardiovascular : No Chest Pain, No SOB Respiratory : No Cough, No Sputum, No Wheezing, No Smoke Exposure, No Dyspnea Gastrointestinal : No Nausea, No Vomiting, No Diarrhea, No abdominal Pain Genitourinary : No Dysuria, No Urinary Frequency, No Hematuria Musculoskeletal : No joint pain, No Myalgias, No Joint Swelling Skin : No Skin Lesions, no rash Neuro : No Weakness, No Numbness, No Headache a All other systems reviewed and are negative FOR[facility]LY [facility], [facility] Past Medical History Attestation statement: The following information was validated with the patient. Source: old records reviewed Medical History Anaphylaxis PTSD (post-traumatic stress disorder) Anxiety Allergy-induced asthma Chronic headaches Migraines Surgical History H/O removal of cyst Family History Family History Maternal Grandmother Breast cancer Mother No problems noted. Father Alcohol abuse Social History Social History Housing: Apartment Alcohol intake: never Patient Tobacco Use Status: Never used Tobacco e-Cigarette/Vaping Use: Never Used Advance Directives: No Advance Directives Information Provided: No Do you have a plan to hurt others: No Plan service: No Current occupational status: employed Current occupation: [employer] Sexual orientation: Straight/Heterosexual Gender identity: Female Cognitive needs: No Hearing needs: No Vision needs: No Physical Exam ED Vital Signs: Vital Signs - 24 hr 12/16/24 20:19 12/16/24 20:33 Temperature 98.6 F 98.6 F Pulse Rate 82 82 Respiratory Rate 16 16 Blood Pressure 126/80 126/80 Pulse Oximetry 93 93 Oxygen Delivery Method Room Air Room Air BMI result Body Mass Index 28.3 Appearance: Alert. Oriented X3. No acute distress. Eyes: Pupils equal, round and reactive to light. ENT: Pharynx normal. no swelling Neck: Normal inspection. Neck supple. CVS: Normal heart rate and rhythm. Pulses normal. Respiratory: No respiratory distress. Breath sounds normal. Abdomen: Soft and nontender. Skin: Skin warm and dry. Normal skin color. Normal skin turgor. Extremities: No lower extremity edema. No calf ttp Neuro: Oriented X 3. No motor deficit. No sensory deficit. 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 She had a bit of benadryl 150mg in last 8 hours but no signs of toxicity and EKG reassuring. She will get dexamethasone and then DC with epi pen she has no symptoms now and looks well. Differential Diagnosis Differential Diagnoses: The differential diagnosis associated with the presentation includes anaphylaxis, allergy Admission/Observation Consideration of admission/observation: Escalation of care including admission/observation considered negative at 2 hours stable for DC Lab Data [facility] Lab Attestation statement: I reviewed the patient's lab results. 12/16/24 20:30 12/16/24 20:30 Labs: Lab Results 12/16/24 Range/Units 20:30 WBC 10.9 H (4.8-10.8) X10*3/uL RBC 4.49 (4.20-5.50) X10*6/uL Hgb 13.8 (12.0-16.0) g/dl Hct 39.5 (37.0-47.0) % MCV 88.0 (80.0-98.0) fL MCH 30.7 (27.0-33.0) pg MCHC 34.9 (31.0-35.0) g/dl RDW 12.0 (11.0-16.0) % Plt Count 314 D (160-400) X10*3/uL MPV 9.5 (9.4-12.3) fL Immature Gran % (Auto) 0.3 (0.0-0.4) % Neut % (Auto) 53.4 (45-73) % Lymph % (Auto) 33.6 (20-40) % [place] % (Auto) 9.9 (2-11) % Eos % (Auto) 2.3 (0-4) % Baso % (Auto) 0.5 (0-2) % Lymph # (Auto) 3.7 (1.2-4.9) X10*3/uL [place] # (Auto) 1.1 (0.1-1.2) X10*3/uL Eos # (Auto) 0.3 (0.0-0.4) X10*3/uL Baso # (Auto) 0.1 (0.0-0.2) X10*3/uL Abs Immat Gran (auto) 0.03 (0.00-0.03) X10*3/uL Absolute Neuts (auto) 5.8 (2.0-8.3) x10*3/uL Absolute Nucleated RBC 0.000 (0.0-0.012) X10*3/uL Nucleated RBC % (auto) 0.0 (0.0-0.2) /100WBC Sodium 141 (135-145) mmol/L Potassium 3.5 (3.3-5.1) mmol/L Chloride 107 (96-108) mmol/L Carbon Dioxide 23 (22-29) mmol/L Anion Gap 14 (12-20) BUN 9 (9-16) mg/dL Creatinine 0.76 (0.5-1.4) mg/dL Estim Creat Clear Calc 102.3 Estimated GFR > 60 Random Glucose 147 H (60-115) mg/dL Calcium 8.8 (8.4-10.2) mg/dL Total Bilirubin 0.3 (0.0-1.0) mg/dL AST 26 (5-31) U/L ALT 19 (0-31) U/L Alkaline Phosphatase 94 (39-117) U/L Total Protein 7.2 (6.5-8.0) g/dL Albumin 4.3 (3.5-5.0) g/dL Independent Interpretation I performed an independent interpretation of an: EKG Interpretation: Rate: 80 Rhythm: NSR [place]: normal Normal P waves. Normal HUMAIRA. Normal QRS complex. ST T wave : inverted t waves V1, no LANDON qTC: 447 prior studies: no acute ischemia The study has been interpreted contemporaneously by me. . Independent Historian Clinical information obtained from an independent historian. History obtained from or confirmed by: Friend External Record Review External record reviewed: Outpatient record Prescription Management I considered prescription management with: Other Discharge Plan Discharge Clinical Impression: Anaphylaxis Qualifiers: Encounter type: subsequent encounter Qualified Code(s): T78.2XXD - Anaphylactic shock, unspecified, subsequent encounter Patient Disposition: Home, Self-Care Instructions: Anaphylaxis (ED) Additional Instructions: avoid sugar cookies no more benadryl tonight unless severe allergic reaction return for any concerns or signs of anaphylaxis carry epi pen with you at all times Prescriptions: New epinephrine 0.3 mg/0.3 mL auto-injector 0.3 mg IM Q10M PRN (Reason: anaphylaxis) Qty: 2 1RF Rx Instructions: for 2 doses No Action albuterol sulfate 90 mcg/actuation HFA aerosol inhaler 1 inh inhalation QID PRN (Reason: shortness of breath or wheezing) Qty: 6.7 1RF gabapentin 300 mg capsule 600 mg PO BID gabapentin 300 mg capsule 300 mg PO BEDTIME epinephrine [EpiPen 2-Nasim] 0.3 mg/0.3 mL auto-injector 0.3 mg IM Q10M PRN (Reason: anaphylaxis) Qty: 2 2RF Rx Instructions: for 2 doses prazosin 1 mg capsule 2 mg PO BEDTIME trazodone 100 mg tablet 100 mg PO BEDTIME bupropion HCl 100 mg tablet sustained-release 12 hr 100 mg PO BID venlafaxine 37.5 mg capsule,extended release 24hr 37.5 mg PO DAILY Mirena 21 mcg/24hr (up to 8 yrs) 52 mg intrauterine device intrauterine Interventions: ED Discharge Assessment Last Done: 12/16/24 21:36 Print Language: Lao
[2024-12-16 21:36] VITALS: BP 119/72; PULSE 80; RESP 16; TEMP 36.9; O2SAT 97
== END 2024-12-16 21:43 | disposition home or self-care (01) ==
PROVIDERS: Emergency Provider Emergency Medicine
DX: T78.1XXA Other adverse food reactions, not elsewhere classified, initial encounter (principal); T78.49XA Other allergy, initial encounter; R49.0 Dysphonia; R13.10 Dysphagia, unspecified; X58.XXXA Exposure to other specified factors, initial encounter; Z79.899 Other long term (current) drug therapy
CPT/HCPCS: 36415; 80053; 85025; 93005; 99283; 99285; J1100

== ENCOUNTER → 2024-12-16 20:38 | Outpatient (BNV) | payer OTHER, SELFPAY | PROVIDERS: Emergency Provider Emergency Medicine; Visit Provider Internal Medicine Cardiovascular Disease | DX: T50.901A Poisoning by unspecified drugs, medicaments and biological substances, accidental (unintentional), initial encounter (principal) | CPT/HCPCS: 93010 ==

== ENCOUNTER 2025-04-25 19:09 | Emergency (ER) | payer OTHER, SELFPAY ==
[2025-04-25 19:19] VITALS: BP 129/86; BP 132/85; PULSE 111; PULSE 119; RESP 16; TEMP 36.7; O2SAT 100; O2SAT 99; BMI 30.1
--- NOTE | 2025-04-25 20:04 | ED.ALLEREA ---
HPI - Allergic Reaction General Chief complaint: Allergic Reaction Stated complaint: ate mushroom soup, allergy to mushrooms, strep + Time Seen by Provider: 04/25/25 19:32 History of Present Illness HPI narrative: Patient is a 30-year-old female history of eating a bowl of chicken noodle soup that contain mushroom. Patient is allergic to mushroom feels some burning tingling sensation to the throat. Self administered a dose of Benadryl 50 mg and also an EpiPen. EMS got there they gave the patient a dose of Solu-Medrol. Patient was sent in for further evaluation. She is on amoxicillin for strep throat. She had had the amoxicillin in the past. No difficulty breathing. No difficulty with voice. Able to tolerate own saliva. Related Data Home Medications ?Medication ?Instructions ?Recorded ?Confirmed bupropion HCl 100 mg tablet,12 hr 100 mg PO BID 05/29/24 11/04/24 sustained-release trazodone 100 mg tablet 100 mg PO BEDTIME 05/29/24 11/04/24 prazosin 1 mg capsule 2 mg PO BEDTIME 09/08/24 11/04/24 gabapentin 300 mg capsule 300 mg PO BEDTIME 09/16/24 11/04/24 gabapentin 300 mg capsule 600 mg PO BID 09/16/24 11/04/24 levonorgestrel (Mirena) intrauterine 11/04/24 11/04/24 venlafaxine 37.5 mg 37.5 mg PO DAILY 11/04/24 11/04/24 capsule,extended release 24 hr Previous Rx's ?Medication ?Instructions ?Recorded albuterol sulfate 90 mcg/actuation 1 inh inhalation QID PRN shortness 09/01/21 aerosol inhaler of breath or wheezing #6.7 grams epinephrine 0.3 mg/0.3 mL 0.3 mg (0.3 mL) IM Q10M PRN 09/16/24 injection, auto-injector (EpiPen anaphylaxis #2 ea 2-Nasim) epinephrine 0.3 mg/0.3 mL 0.3 mg (0.3 mL) IM Q10M PRN 12/16/24 injection, auto-injector anaphylaxis #2 ea diphenhydramine HCl 25 mg capsule 25 mg PO Q8H 5 days #15 caps 04/25/25 (Benadryl) epinephrine 0.3 mg/0.3 mL 0.3 mg (0.3 mL) IM ONCE PRN 04/25/25 injection, auto-injector (EpiPen) extreme reaction #1 ea famotidine 20 mg tablet (Pepcid) 20 mg PO BID 5 days #10 tabs 04/25/25 prednisone 20 mg tablet 40 mg (2 x 20 mg) PO DAILY #10 tabs 04/25/25 Allergies Allergy/AdvReac Type Severity Reaction Status Date / Time nut - unspecified (NUTS) Allergy Unknown SWELLING Verified 12/16/24 20:19 THROAT, Face, HIVES mushroom Allergy Itching Verified 04/25/25 19:30 oxcarbazepine (From AdvReac Intermediate RASH Verified 12/16/24 20:19 TRILEPTAL) Review of Systems Review of Systems: Positive sore throat positive tingling sensation to the mouth. Yes all other systems are reviewed and are negative PMFSH Past Medical History Attestation statement: The following information was validated with the patient. Medical History Anaphylaxis PTSD (post-traumatic stress disorder) Anxiety Allergy-induced asthma Chronic headaches Migraines Surgical History H/O removal of cyst Family History Family History Maternal Grandmother Breast cancer Mother No problems noted. Father Alcohol abuse Social History Social History Housing: Apartment Unable to assess alcohol history related to: Unknown Alcohol intake: never Patient Tobacco Use Status: Never used Tobacco Smoked in Last 30 Days: No e-Cigarette/Vaping Use: Never Used Use of substances other than those prescribed or required for medical reasons: No Advance Directives: No Advance Directives Information Provided: Yes Do you have a plan to hurt others: No Plan Patient : No service: No Current occupational status: employed Current occupation: [employer] Sexual orientation: Straight/Heterosexual Gender identity: Female Cognitive needs: No Hearing needs: No Vision needs: No Physical Exam ED Exam Exam: Appearance: Alert. Oriented X3. No acute distress. Eyes: Pupils equal, round and reactive to light. ENT: Pharynx normal. Neck: Normal inspection. Neck supple. No lymph nodes noted. No crepitus CVS: Normal heart rate and rhythm. Pulses normal. Normal S1 and S2 Respiratory: No respiratory distress. Breath sounds normal. No Wheezing. No rales Abdomen: Soft and nontender. No rigidity. No distention. good BS x4 Skin: Skin warm and dry. Normal skin color. Normal skin turgor. Extremities: No lower extremity edema. Neurovascular intact to all extremities. No Lacerations. No Rash Neuro: Oriented X 3. No motor deficit. No sensory deficit. Moving all extermities. No slurred speech Vital Signs: Vital Signs - 24 hr 04/25/25 19:19 04/25/25 20:28 Temperature 98.1 F Pulse Rate 111 H Pulse Rate [Monitor] 108 H Respiratory Rate 16 Blood Pressure 132/85 Pulse Oximetry 99 Oxygen Delivery Method Room Air BMI result Body Mass Index 30.1 Medications Administered Generic Name Dose Route Start Last Admin Trade Name Freq PRN Reason Stop Dose Admin Sodium Chloride 1,000 mls @ 999 mls/hr 04/25/25 20:15 04/25/25 20:23 Ns IV 04/25/25 21:15 999 mls/hr .Q1H1M DIONNE Administration Discontinued Medications Generic Name Dose Route Start Last Admin Trade Name Freq PRN Reason Stop Dose Admin Famotidine 20 mg 04/25/25 20:06 04/25/25 20:23 Famotidine/Pf 20 Mg/2 Ml Vial IVPUSH 04/25/25 20:07 20 mg ONCE ONE Administration Medical Decision Making Medical Decision Making [facility] Narrative: Well-appearing no acute distress. Patient's epinephrine was administered at approximately 6 40. Will monitor for 2 hours. Currently in stable condition no distress vital signs are stable lungs are clear. Patient monitored in the emergency department for full 2 hours after the epinephrine shot. Symptomatically feels much improved in no distress patient to be discharged home medication was refilled in stable condition Differential Diagnosis Differential Diagnoses: The differential diagnosis associated with the presentation includes Anaphylactic reaction, allergic reaction Admission/Observation Consideration of admission/observation: Escalation of care including admission/observation considered Lab Data [facility] Lab Attestation statement: I reviewed the patient's lab results. Independent Historian Clinical information obtained from an independent historian. History obtained from or confirmed by: Spouse Chronic Conditions Allergic reaction to mushroom Social Determinants Patient?s care significantly limited by Social Determinants of Health including: Problems related to primary support group Discharge Plan Discharge Clinical Impression: Anaphylactic reaction Patient Disposition: Home, Self-Care Instructions: Food Allergy (ED), General Allergic Reaction (ED) Prescriptions: New prednisone 20 mg tablet 40 mg PO DAILY Qty: 10 0RF famotidine [Pepcid] 20 mg tablet 20 mg PO BID 5 Days Qty: 10 0RF diphenhydramine HCl [Benadryl] 25 mg capsule 25 mg PO Q8H 5 Days Qty: 15 0RF epinephrine [EpiPen] 0.3 mg/0.3 mL auto-injector 0.3 mg IM ONCE PRN (Reason: extreme reaction) Qty: 1 0RF Rx Instructions: for 2 doses No Action epinephrine 0.3 mg/0.3 mL auto-injector 0.3 mg IM Q10M PRN (Reason: anaphylaxis) Qty: 2 1RF Rx Instructions: for 2 doses albuterol sulfate 90 mcg/actuation HFA aerosol inhaler 1 inh inhalation QID PRN (Reason: shortness of breath or wheezing) Qty: 6.7 1RF gabapentin 300 mg capsule 600 mg PO BID gabapentin 300 mg capsule 300 mg PO BEDTIME epinephrine [EpiPen 2-Nasim] 0.3 mg/0.3 mL auto-injector 0.3 mg IM Q10M PRN (Reason: anaphylaxis) Qty: 2 2RF Rx Instructions: for 2 doses prazosin 1 mg capsule 2 mg PO BEDTIME trazodone 100 mg tablet 100 mg PO BEDTIME bupropion HCl 100 mg tablet sustained-release 12 hr 100 mg PO BID venlafaxine 37.5 mg capsule,extended release 24hr 37.5 mg PO DAILY Mirena 21 mcg/24hr (up to 8 yrs) 52 mg intrauterine device intrauterine Referrals: [facility] [Physician, Medical] - 04/28/25 Print Language: Kazakh
[2025-04-25 20:28] VITALS: PULSE 108
[2025-04-25 21:16] VITALS: BP 134/86; PULSE 93; RESP 16; TEMP 36.6; O2SAT 96
== END 2025-04-25 21:27 | disposition home or self-care (01) ==
PROVIDERS: Emergency Provider Emergency Medicine Emergency Medical Services
DX: R20.2 Paresthesia of skin (principal); T78.19XA Other adverse food reactions, not elsewhere classified, initial encounter; T78.49XA Other allergy, initial encounter; X58.XXXA Exposure to other specified factors, initial encounter
CPT/HCPCS: 96374; 99284; J1308

== ENCOUNTER 2025-05-08 17:03 | Emergency (ER) | payer OTHER, SELFPAY ==
--- NOTE | ~2025-05-08 | CT_ITS ---
CLINICAL HISTORY: Seizure CT head without contrast Comparison: MR/SR - MR BRAIN WITHOUT IV CONTRAST - 06/02/24 12:[address]/SR - CT HEAD WITHOUT IV CONTRAST STROKE - 06/02/24 09:05 EST Findings: BRAIN: No acute infarct, hemorrhage, or mass effect. No abnormal atrophy. CSF SPACES: No hydrocephalus or effacement of basal cisterns. SKULL: No calvarial fracture. SINUSES: No significant mucosal thickening or effusion on limited views. ORBITS: Limited views are unremarkable. OTHER: Negative. IMPRESSION: 1. No acute intracranial findings. This document has been electronically signed by: Carina Daigle MD on 05/08/2025 19:19:20
[2025-05-08 17:16] VITALS: BP 121/82; PULSE 109; RESP 18; TEMP 36.3; O2SAT 96; BMI 29.2
--- NOTE | 2025-05-08 17:25 | ED_ITS ---
HPI - General Adult General Chief complaint: Seizure Stated complaint: seizures Time Seen by Provider: 05/08/25 17:47 History of Present Illness ED Provider: Nicci Hernández HPI narrative: 28-year-old female with a self-reported history of seizure disorder followed by psychiatry on gabapentin, presents to the ED for evaluation reporting a seizure that occurred during her sleep, her perioral pallor to be postictal, and she now reports numbness in the right side of the head. She reports a history of partial nocturnal seizures. 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 Her partner reports that over the past 1 month, she is having increasing seizures to about 2 times per week when she previously has had them once per month. She has not seen a neurologist in several years, nor has she had imaging done. Denies any incontinence during this episode, denies any tongue biting. Denies any active chest pain or pressure, shortness of breath or abdominal pain, nausea or vomiting, denies chance of . No fever, chills, recent illnesses. Related Data Home Medications ?Medication ?Instructions ?Recorded ?Confirmed bupropion HCl 100 mg tablet,12 hr 100 mg PO BID 11/04/24 sustained-release trazodone 100 mg tablet 100 mg PO BEDTIME 05/29/24 0 11/04/24 prazosin 1 mg capsule 2 mg PO BEDTIME 09/08/24 gabapentin 300 mg capsule 300 mg PO BEDTIME 09/16/24 0 11/04/24 gabapentin 300 mg capsule 600 mg PO BID 09/16/2411/04 levonorgestrel (Mirena) intrauterine 11/04/24 venlafaxine 37.5 mg 37.5 mg PO DAILY 11/04/24 capsule,extended release 24 hr Previous Rx's ?Medication ?Instructions ?Recorded albuterol sulfate 90 mcg/actuation 1 inh inhalation QI D PRN shortness 09/01/21 aerosol inhaler of breath or wheezing #6.7 g cecilia epinephrine 0.3 mg/0.3 mL 0.3 mg (0.3 mL) IM Q10M PRN 09/16/24 injection, auto-injector (EpiPen anaphylaxis #2 ea 2-Nasim) epinephrine 0.3 mg/0.3 mL 0.3 mg (0.3 mL) IM Q10M PRN 12/16/24 injection, auto-injector anaphylaxis #2 ea diphenhydramine HCl 25 mg capsule 25 mg PO Q8H 5 days #15 caps 04/25/25 (Benadryl) epinephrine 0.3 mg/0.3 mL 0.3 mg (0.3 mL) IM ONCE PRN 04/25/25 injection, auto-injector (EpiPen) extreme reaction #1 ea famotidine 20 mg tablet (Pepcid) 20 mg PO BID 5 days # 10 tabs 04/25/25 prednisone 20 mg tablet 40 mg (2 x 20 mg) PO DAILY # 10 tabs 04/25/25 Allergies Allergy/AdvReac Type Severity Reaction Status Date / Time nut - unspecified (NUTS) Allergy Unknown SWELLING Verified 05/08/25 17:20 THROAT, Face, HIVES mushroom Allergy Itching Verified 05/08/25 17:20 oxcarbazepine (From AdvReac Intermediate RASH Verified 05/08/25 17:20 TRILEPTAL) Review of Systems 2 Review of Systems: ROS is otherwise negative unless mentioned in HPI. [facility] Past Medical History Medical History Anaphylaxis PTSD (post-traumatic stress disorder) Anxiety Allergy-induced asthma Chronic headaches Migraines Surgical History H/O removal of cyst Family History Family History Maternal Grandmother Breast cancer Mother No problems noted. 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 Constitutional: Well-appearing, NAD. Alert. Oriented X3. Eyes: Pupils equal, round and reactive to light. EOMI. ENT: Pharynx normal. Neck: Normal inspection. Neck supple. CVS: Normal heart rate and rhythm. Pulses normal. Respiratory: No respiratory distress. Breath sounds normal. Abdomen: Soft and nontender. Nondistended. Skin: Skin warm and dry. Normal skin color. Extremities: No lower extremity edema. Neuro: Oriented X 3. No motor deficit. Vital Signs: Vital Signs - 24 hr 05/08/25 17:16 Temperature 97.3 F Pulse Rate 109 H Respiratory Rate 18 Blood Pressure 121/82 Pulse Oximetry 96 Oxygen Delivery Method Room Air BMI result Body Mass Index 29.2 Course Course Course Narrative: RME: 30 yold female iwith pmh of seizure presents to the ED for last night. patient missed her dose of gabapentin and had seizure last night. Patient usually has one seizure per month. labs ordered. Patient to be brought to the ED> Medications Administered Discontinued Medications Generic Name Dose Route Start Last Admin Trade Name Freq PRN Reason Stop Dose Admin Sodium Chloride 1,000 mls @ 999 mls/hr 05/08/25 17:54 05/08/25 20:15 Ns IV 05/08/25 18:54 Infused .Q1H1M ONE Infusion Ketorolac Tromethamine 15 mg 05/08/25 19:36 05/08/25 20:16 Ketorolac Tromethamine 15 Mg/Ml Vial IVPUSH 05/08/25 19:37 15 mg ONCE ONE Administration Medical Decision Making Medical Decision Making [facility] Narrative: Upon my initial assessment, she answers all questions appropriately. She is not so to respond, behavior is appropriate, but patient is appropriate. Her partners concerned reporting that she has had an increase in seizures over the past 1 month, she has not seen neurologist in several years. given this vague report of numbness to the right side of her head, plan for CT imaging of the head to rule out underlying pathology. Patient is on gabapentin only, which is not prescribed by Neurology, she is currently only followed by Psychiatry. She reports that she missed 1 dose of her gabapentin last night and believes this may have caused her seizure today. However, she has not been missing doses. We will obtain lab work, EKG, urinalysis and reassess after CT imaging of the head. We will administer a fluid bolus. 193-- CT of the head with no acute intracranial pathology, currently pending lactic acid, otherwise lab work is reassuring. We will administer a dose of Toradol for persistent headache and reassess. 2039-- reports significant improvement of the headache after Toradol. We will need to follow up outpatient with Neurology. Agreeable with discharge plan. Lactic acid normal. No indication for additional workup nor for admission at this time. Provided return precautions to the ED. Differential Diagnosis Differential Diagnoses: The differential diagnosis associated with the presentation includes Seizure, syncope, electrolyte abnormality or disturbance, alcohol or drug use Admission/Observation Consideration of admission/observation: Escalation of care including admission/observation considered (Not indicated) Lab Data MDM Lab Attestation statement: I reviewed the patient's lab results. (Overall reassuring) 05/08/25 17:39 05/08/25 17:39 Labs: Lab Results 05/08/25 05/08/25 05/08/25 Range/Units 17:39 19:02 19:17 WBC 7.4 (4.8-10.8) X10*3/uL RBC 4.66 (4.20-5.50) X10*6/uL Hgb 14.3 (12.0-16.0) g/dl Hct 41.3 (37.0-47.0) % MCV 88.6 (80.0-98.0) fL MCH 30.7 (27.0-33.0) pg MCHC 34.6 (31.0-35.0) g/dl RDW 12.6 (11.0-16.0) % Plt Count 290 (160-400) X10*3/uL MPV 9.3 L (9.4-12.3) fL Immature Gran % (Auto) 0.1 (0.0-0.4) % Neut % (Auto) 64.4 (45-73) % Lymph % (Auto) 25.4 (20-40) % Blair % (Auto) 8.4 (2-11) % Eos % (Auto) 1.2 (0-4) % Baso % (Auto) 0.5 (0-2) % Lymph # (Auto) 1.9 (1.2-4.9) X10*3/uL Blair # (Auto) 0.6 (0.1-1.2) X10*3/uL Eos # (Auto) 0.1 (0.0-0.4) X10*3/uL Baso # (Auto) 0.0 (0.0-0.2) X10*3/uL Abs Immat Gran (auto) 0.01 (0.00-0.03) X10*3/uL Absolute Neuts (auto) 4.8 (2.0-8.3) x10*3/uL Absolute Nucleated RBC 0.000 (0.0-0.012) X10*3/uL Nucleated RBC % (auto) 0.0 (0.0-0.2) /100WBC Sodium 140 (135-145) mmol/L Potassium 3.9 (3.3-5.1) mmol/L Chloride 107 (96-108) mmol/L Carbon Dioxide 26 (22-29) mmol/L Anion Gap 11 L (12-20) BUN 8 L (9-16) mg/dL Creatinine 0.66 (0.5-1.4) mg/dL Estim Creat Clear Calc 118.6 Estimated GFR > 60 Random Glucose 102 (60-115) mg/dL Lactic Acid 1.4 (0.5-2.0) mmol/L Calcium 8.8 (8.4-10.2) mg/dL Magnesium 2.2 (1.6-2.6) mg/dL Total Bilirubin 0.5 (0.0-1.0) mg/dL AST 23 (5-31) U/L ALT 27 (0-31) U/L Alkaline Phosphatase 87 (39-117) U/L Total Protein 6.9 (6.5-8.0) g/dL Albumin 4.4 (3.5-5.0) g/dL Beta HCG, Quant < 2 mIU/mL Urine Color Yellow Urine Appearance Cloudy Urine pH 7.0 (5.0-9.0) Ur Specific [place] 1.010 (1.005-1.025) Urine Protein Negative (Neg-Trace) mg/dL Urine Glucose (UA) Negative (Negative) mg/dL Urine Ketones Negative (Negative) mg/dL Urine Blood Negative (Negative) Urine Nitrite Negative (Negative) Ur Leukocyte Esterase Negative (Negative) Urine Opiates Screen Not Detected (Not Detect) Ur Buprenorphine Scrn Not Detected (Not Detect) ng/mL Ur Oxycodone Screen Not Detected (Not Detect) ng/mL Urine Methadone Screen Not Detected (Not Detect) ng/mL Urine Fentanyl Screen Not Detected (Not Detect) Ur Barbiturates Screen Not Detected (Not Detect) Ur Phencyclidine Scrn Not Detected (Not Detect) Ur Amphetamines Screen Not Detected (Not Detect) U Benzodiazepines Scrn Not Detected (Not Detect) Urine Cocaine Screen Not Detected (Not Detect) U Marijuana (THC) Screen Not Detected (Not Detect) Ethyl Alcohol < 10 mg/dL Independent Interpretation I performed an independent interpretation of an: EKG and CT Scan Interpretation: Rate: 84 Rhythm: NSR [place]: 42/60/21 Normal P waves. Normal HUMAIRA. Normal QRS complex. ST T wave : No elevation, depression qTC: 432 prior studies: Similar The study has been interpreted contemporaneously by me. I have reviewed the patient's imaging and agree with the radiologist's findings. Radiology Impression Discussion of test interpretation with radiology: I have reviewed the radiologist's reading. Radiologist Impression: CT head: IMPRESSION: 1. No acute intracranial findings Independent Historian Clinical information obtained from an independent historian. History obtained from or confirmed by: Spouse External Record Review External record reviewed: Outpatient record and Prior outpatient labs Chronic Conditions Patient?s care impacted by: Other (Seizure disorder) Social Determinants Patient?s care significantly limited by Social Determinants of Health including: Problems related to primary support group Discharge Plan Discharge Clinical Impression: Seizure Patient Disposition: Home, Self-Care Instructions: Recurrent Seizures in Adults (ED) Additional Instructions: As we discussed, your workup was overall reassuring today. The CT of the head showed no acute intracranial pathology. It is very important that you follow up with Neurology outpatient (listed below for your convenicne) regarding your gabapentin use and seizure disorder. With any worsening complaints at any time, return back to the ED for reassessment. Prescriptions: No Action epinephrine 0.3 mg/0.3 mL auto-injector 0.3 mg IM Q10M PRN (Reason: anaphylaxis) Qty: 2 1RF Rx Instructions: for 2 doses prednisone 20 mg tablet 40 mg PO DAILY Qty: 10 0RF famotidine [Pepcid] 20 mg tablet 20 mg PO BID 5 Days Qty: 10 0RF diphenhydramine HCl [Benadryl] 25 mg capsule 25 mg PO Q8H 5 Days Qty: 15 0RF epinephrine [EpiPen] 0.3 mg/0.3 mL auto-injector 0.3 mg IM ONCE PRN (Reason: extreme reaction) Qty: 1 0RF Rx Instructions: for 2 doses albuterol sulfate 90 mcg/actuation HFA aerosol inhaler 1 inh inhalation QID PRN (Reason: shortness of breath or wheezing) Qty: 6.7 1RF gabapentin 300 mg capsule 600 mg PO BID gabapentin 300 mg capsule 300 mg PO BEDTIME epinephrine [EpiPen 2-Nasim] 0.3 mg/0.3 mL auto-injector 0.3 mg IM Q10M PRN (Reason: anaphylaxis) Qty: 2 2RF Rx Instructions: for 2 doses prazosin 1 mg capsule 2 mg PO BEDTIME trazodone 100 mg tablet 100 mg PO BEDTIME bupropion HCl 100 mg tablet sustained-release 12 hr 100 mg PO BID venlafaxine 37.5 mg capsule,extended release 24hr 37.5 mg PO DAILY Mirena 21 mcg/24hr (up to 8 yrs) 52 mg intrauterine device intrauterine Referrals: [facility] [Provider Group] Stand Alone Forms: Work/School Release Interventions: ED Discharge Assessment Last Done: 05/08/25 21:04 Discharge Date/Time: 05/08/25 21:06 Print Language: Yakut
[2025-05-08 17:45] LABS: MANUAL DIFF FLAG NO
[2025-05-08 17:47] LABS: Hematocrit 41.3 % (37.0-47.0); Hemoglobin 14.3 g/dl (12.0-16.0); Imm Gran Abs Auto 0.01 X10*3/uL (0.00-0.03); Imm Gran Pct Auto 0.1 % (0.0-0.4); Lymphocytes Absolute Auto 1.9 X10*3/uL (1.2-4.9); Mean Corpuscular HGB Conc 34.6 g/dl (31.0-35.0); Mean Corpuscular Hemoglobin 30.7 pg (27.0-33.0); Mean Corpuscular Volume 88.6 fL (80.0-98.0); NRBC Abs Auto 0.000 X10*3/uL (0.0-0.012); NRBC Pct Auto 0.0 /100WBC (0.0-0.2); Platelet Count 290 X10*3/uL (160-400); Red Blood Count 4.66 X10*6/uL (4.20-5.50); White Blood Count 7.4 X10*3/uL (4.8-10.8)
[2025-05-08 18:05] LABS: Alanine Aminotransferase 27 U/L (0-31); Albumin Level 4.4 g/dL (3.5-5.0); Alkaline Phosphatase 87 U/L (39-117); Anion Gap 11 (12-20); Aspartate Amino Transferase 23 U/L (5-31); Blood Urea Nitrogen 8 mg/dL (9-16); Calcium 8.8 mg/dL (8.4-10.2); Carbon Dioxide 26 mmol/L (22-29); Chloride 107 mmol/L (96-108); Creatinine Clr Calc Pharmacy 118.6; Estimated Glomerular Filt Rate > 60; Magnesium 2.2 mg/dL (1.6-2.6); Potassium 3.9 mmol/L (3.3-5.1); Sodium 140 mmol/L (135-145); Total Protein 6.9 g/dL (6.5-8.0)
--- NOTE | 2025-05-08 18:09 | ECG_ITS ---
Test Reason : SEIZURES Blood Pressure : */* mmHG Vent. Rate : 84 BPM Atrial Rate : 84 BPM P-R Int : 130 ms QRS Dur : 82 ms QT Int : 366 ms P-R-T Axes : 42 60 21 degrees QTcB Int : 432 ms Normal sinus rhythm Normal ECG When compared with ECG of 16-Dec-2024 20:38, No significant change was found Referred By: Nicci Hernández Electronically Signed By: CONNIE JASMINE
[2025-05-08 19:09] LABS: Appearance Urine Cloudy; Glucose Urine UA Negative (Negative); PH 7.0 (5.0-9.0); Specific Gravity - Urine 1.010 (1.005-1.025)
[2025-05-08 19:19] LABS: Cannabinoid Screen Urine Not Detected (Not Detect)
[2025-05-08 21:04] VITALS: BP 122/76; PULSE 89; RESP 18; TEMP 36.5; O2SAT 97
== END 2025-05-08 21:06 | disposition home or self-care (01) ==
PROVIDERS: Nurse Practitioner; Physician Assistant; Emergency Provider Emergency Medicine
DX: R56.9 Unspecified convulsions (principal); R51.9 Headache, unspecified; R10.22 Pelvic and perineal pain left side; R11.0 Nausea; Z79.899 Other long term (current) drug therapy; Z51.81 Encounter for therapeutic drug level monitoring
CPT/HCPCS: 36415; 70450; 80053; 80307; 81003; 83605; 83735; 84702; 85025; 93005; 96361; 96374; 99284; 99285; J1885

== ENCOUNTER → 2025-05-08 18:01 | Outpatient (BNV) | payer OTHER, SELFPAY | PROVIDERS: Visit Provider Student in an Organized Health Care Education/Training Program | DX: R56.9 Unspecified convulsions (principal) | CPT/HCPCS: 70450 ==

== ENCOUNTER → 2025-05-08 18:09 | Outpatient (BNV) | payer OTHER, SELFPAY | PROVIDERS: Emergency Provider Emergency Medicine; Visit Provider Internal Medicine | DX: R56.9 Unspecified convulsions (principal) | CPT/HCPCS: 93010 ==

== ENCOUNTER 2025-05-18 11:19 | Outpatient (AMB) | payer OTHER, SELFPAY ==
[2025-05-18 11:37] VITALS: BP 120/64; PULSE 80; RESP 18; O2SAT 98; BMI 29.5
--- NOTE | 2025-05-18 11:37 | A.OFFPC_ITS ---
Vital Signs 05/18/25 11:37 Height 5 ft 3 in Weight 166 lb 8 oz BMI 29.5 BP 120/64 Blood Pressure Location Lt brachial Position Sitting Respiration 18 Pulse 80 Pulse Source Pulse Oximeter Temp Source Temporal Artery Scan Pulse Oximetry (%) 98 Oxygen Delivery Method Room Air Intake Visit Reasons: [facility] 05/08 seizures Emt I/99 Required: No Accompanied by: Self / Same As Patient Allergies nut - unspecified (NUTS) Allergy (Unknown, Verified 05/18/25 11:56) SWELLING THROAT, Face, HIVES mushroom Allergy (Verified 05/18/25 11:56) Itching oxcarbazepine (From TRILEPTAL) Adverse Reaction (Intermediate, Verified 05/18/25 11:56) RASH Medication List - Last Reconciled 05/18/25 by VIV Kline albuterol sulfate 90 mcg/actuation 1 inh inhalation QID PRN bupropion HCl SR 100 mg PO BID diphenhydramine HCl (Benadryl) 25 mg PO Q8H 5 days epinephrine 0.3 mg (0.3 mL) IM Q10M PRN epinephrine (EpiPen) 0.3 mg (0.3 mL) IM ONCE PRN epinephrine (EpiPen 2-Nasim) 0.3 mg (0.3 mL) IM Q10M PRN famotidine (Pepcid) 20 mg PO BID 5 days gabapentin 600 mg PO BID gabapentin 300 mg PO BEDTIME levonorgestrel (Mirena) intrauterine prazosin 2 mg PO BEDTIME prednisone 40 mg (2 x 20 mg) PO DAILY venlafaxine ER 37.5 mg PO DAILY Tobacco use date assessed: 05/18/25 Dental Screening Dental Screen Date: 05/18/25 Did you have a dental visit in the last 12 months?: No Did you have a dental problem in the last 6 months where you did not have access to dental care?: No Was dental information given to patient?: No HPI [facility] 05/08 seizures HPI Details The patient is 28 year old female reports for post hospital follow up for seizures The patient reports seizures in her sleep , with postictal perioral pallor and numbness in the right side of the head. She reports that a history of partial nocturnal seizures. CTH of head was negative. The patient has not been on any seizure medications for a while. She currently takes gabapentin but was not prescribed by Neurology The patient is in office today reports that she has an appointment in August 03, 2025 with [facility] neurology She is concerned that her seizures has increased due to her not being able to sleep. 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 She reports that she has been having difficulty finishing her work week and has had to call out for the last couple of days. The patient is also on bupropion HCl SR 100 mg b.i.d., which is known to lower seizure threshold. Discussed with the patient to contact her psychiatrist to see if she could be placed on a different medication. The patient reports that she has a appointment with them next month. [facility] Medical History Anaphylaxis PTSD (post-traumatic stress disorder) Anxiety Allergy-induced asthma Chronic headaches Migraines Surgical History H/O removal of cyst Family History Maternal Grandmother Breast cancer Mother No problems noted. 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 Depression Screening Interpretation: Positive Depression Screening Done: Yes Source: Developed by Drs. Aravind Beard, Luz Rodriguez, Lyndon Goldberg and colleagues, with an educational devon from [employer]. Thrive Questionnaire Date Thrive assessed: 05/18/25 I am a: Patient What is your living situation today?: I have a steady place to live Within the past 12 months, did the food you bought not last and you didn't have the money to get more?: Never true Within the past 12 months, did you worry whether your food would run out before you got money to buy more?: Never true Do you have trouble paying for medicines?: No Do you have trouble getting transportation to medical appointments?: No Do you have trouble paying your heating and electricity bill?: No Do you have trouble taking care of your child, family member or friend?: No Do you have trouble with day-to-day activities such as bathing, preparing meals, shopping, managing finances, etc.?: No Are you currently unemployed and looking for a job?: No Are you interested in more education?: Yes Please select the resources that you would like help with: None Currently or been in a relationship where the following occur: I choose not to answer THRIVE Score: 0 ANDRÉS-7 AMB Questionnaire ANDRÉS-7 Date ANDRÉS - 7 assessed: 11/04/24 Source: Developed by Drs. Aravind Beard, Luz Rodriguez, Lyndon Goldberg and colleagues, with an educational devon from [employer]. Review of Systems Narrative Review of Systems - Neurological: Reports decreased sleep and being up all night. Const Denies headache(s) Eyes Denies loss of vision ENT Denies vertigo, Denies dizziness, Denies headache(s) and Denies sore throat Card Denies chest pain, Denies leg edema and Denies lightheadedness Resp Denies cough, Denies hemoptysis, Denies wheezing and Reports other (Intermittent seasonal asthma symptoms) GI Denies abdominal pain, Denies melena, Denies constipation, Denies diarrhea and Denies vomiting Denies urinary frequency, Denies dysuria and Denies urinary urgency Musc Reports arthralgias (Right ankle, improving), Denies joint swelling, Denies numbness and Denies tingling Neuro Denies Abnormal speech present, Denies behavioral changes, Denies vertigo, Denies dizziness, Denies headache(s), Denies loss of vision, Denies memory loss, Denies numbness, Reports seizure-like activity and Denies tingling Psych Reports anxiety, Denies behavioral changes, Denies depression, Denies memory loss and Denies panic attacks Toney/Lymph Denies easy bleeding and Denies easy bruising Aller/Immun Denies wheezing Physical exam (Primary Care) Vital Signs: Last Vital Signs Pulse 80 05/18/25 11:37 Resp 18 05/18/25 11:37 BP 120/64 05/18/25 11:37 Pulse Ox 98 05/18/25 11:37 Oxygen Delivery Method Room Air 05/18/25 11:37 BMI result Body Mass Index 29.5 Tobacco/Smoking Status: Tobacco use Status Tobacco use date assessed 05/18/25 05/18/25 11:42 Patient Tobacco Use Status Never used Tobacco 05/18/25 11:42 e-Cigarette/Vaping Use Never Used 05/18/25 11:42 Depression Screening Interpretation: Positive Thrive Assessment: Date of Thrive Assessment Date Thrive assessed 05/18/25 05/18/25 11:42 Currently or been in a relationship where the following occur: I choose not to answer Narrative Physical Exam Const General: healthy appearing, no acute distress, alert and awake Nutritional Appearance: well nourished Orientation/consciousness: oriented to person, oriented to place and oriented to time HENMT Ears: TM's normal bilaterally General nose exam: Normal nasal mucous membranes and turbinates present Eyes Conjunctivae: conjunctivae normal Sclerae: sclerae normal Pupils: Equal, round and reactive pupils present Neck Neck: Yes no lymphadenopathy and Yes no JVD Thyroid: Thyroid normal Carotids: no bruits Resp Effort & Inspection: normal respiratory effort and not tachypneic Auscultation: no crackles, no rales, no rhonchi and no wheezes Cardio Rate: regular rate Rhythm: regular rhythm Heart sounds: no murmurs and normal S1 and S2 GI Palpation (GI): Soft to palpation, nontender, no hepatomegaly and no splenomegaly Auscultation: normal bowel sounds Skin General skin exam: no rashes or lesions noted and dry skin Neuro General: oriented to person, oriented to place and oriented to time Cranial nerves: Yes Equal, round and reactive pupils present Speech: No Abnormal speech present Gait exam (Neuro): Normal gait present Motor exam (neuro): no tremor noted Extrem Right upper extremity: full ROM Left upper extremity: full ROM Right lower extremity: full ROM; no edema Left lower extremity: full ROM; no edema Psych Mental Status: mental status grossly normal Speech and movement: Normal speech and movement present Affect: normal affect Attitude: cooperative Thought process: Normal thought process present Coding Level of Care Code Est Pt Level 3 (26968) Diagnoses Seizures R56.9 Time Spent (min) 33 Assessment & Plan Assessment & Plan (1) Seizures: Code(s): R56.9 - Unspecified convulsions Category: Medical Plan: The patient is following up from post hospital visit for increase nocturnal partial seizures. Reports that her seizures has increased due to sleep deprivation. Patient reports remote history of seizures and reports last following up with Neurology in 2018. She is on gabapentin but was not ordered by her neurologist. The patient has an upcoming appointment in July 2025 with [facility] neurology. For now, the patient would benefit from working on the day shift to increase her ability of sleeping appropriately. Per patient, she feels sick whenever she takes her sleep medicine during the day to sleep, so she has not been able to sleep well. In turn, she believe her sleep deprivation has increased her seizure activities. Also, noted that the patient is on Wellbutrin prescribe by her a psychiatrst, discussed with the patient about seen if there is another medication that she could go on instead of the Wellbutrin, for this medication decreases seizure threshold and could also increase the chance of her having a seizure.
== END 2025-05-18 13:16 | disposition home or self-care (01) ==
DX: R56.9 Unspecified convulsions (principal)